=== PATIENT | male | born 1985 | race American Indian/Alaskan Native ===

== ENCOUNTER 2017-01-30 04:23 | Emergency (ER) | payer MEDICAID, OTHER ==
[2017-01-30 04:39] VITALS: BP 131/80
[2017-01-30] MEDS ORDERED: Albuterol/Ipratropium 3.0-0.5 MG/3 ML Neb Soln NEB ONE (04:40)
--- NOTE | 2017-01-30 04:43 | EDM.PDOC ---
{null, ED HPI GENERAL MEDICAL PROBLEM - General Chief Complaint: Respiratory Problem Stated Complaint: COUGHING UP FLEM Time Seen by Provider: 01/30/17 04:40 Source of Information: Reports: Patient History Limitations: Reports: No Limitations - History of Present Illness INITIAL COMMENTS - FREE TEXT/NARRATIVE: sick with cough few days using nebs not getting better. - Related Data Allergies Allergy/AdvReac Type Severity Reaction Status Date / Time lactose Allergy Nausea and Verified 01/30/17 04:43 Vomiting Home Meds: Home Meds . [No Known Home Meds] 01/30/17 [History] Past Medical History - Past Health History Medical/Surgical History: Denies Medical/Surgical History HEENT History: Reports: None Cardiovascular History: Reports: None Respiratory History: Reports: None Gastrointestinal History: Reports: None Genitourinary History: Reports: None Musculoskeletal History: Reports: Arthritis, Back Pain, Chronic, Other (See Below) Other Musculoskeletal History: degenerative disk Neurological History: Reports: None Psychiatric History: Reports: None Endocrine/Metabolic History: Reports: None Hematologic History: Reports: None Immunologic History: Reports: None Oncologic (Cancer) History: Reports: None Dermatologic History: Reports: None Social & Family History - Tobacco Use Smoking Status *Q: Former Smoker Years of Tobacco use: 15 Second Hand Smoke Exposure: Yes - Alcohol Use Days Per Week of Alcohol Use: 0 Number of Drinks Per Day: 5 Total Drinks Per Week: 0 - Recreational Drug Use Recreational Drug Use: No - Living Situation & Occupation Living situation: Reports: with Family Occupation: Employed ED ROS GENERAL - Review of Systems Review Of Systems: ROS reveals no pertinent complaints other than HPI. ED EXAM, GENERAL - Physical Exam Exam: See Below Exam Limited By: No Limitations General Appearance: Alert, WD/WN, No Apparent Distress, Other (episodic cough spasms) Ears: Hearing Grossly Normal Throat/Mouth: Normal Voice, No Airway Compromise Head: Atraumatic Neck: Non-Tender, Full Range of Motion Respiratory/Chest: No Respiratory Distress, No Accessory Muscle Use, Rhonchi, Wheezing. No: Decreased Breath Sounds, Retractions, Splinting Cardiovascular: Regular Rate, Rhythm GI/Abdominal: Soft, Non-Tender Neurological: Alert, Oriented, Normal Cognition, Normal Gait, No Motor/Sensory Deficits Psychiatric: Normal Affect, Normal Mood Skin Exam: Warm, Dry Lymphatic: No Adenopathy Course - Vital Signs Last Recorded V/S: Last Vital Signs Temp 35.5 C 01/30/17 04:35 Pulse 73 01/30/17 04:35 Resp 18 01/30/17 04:35 BP 131/80 01/30/17 04:35 Pulse Ox 96 01/30/17 04:35 - Orders/Labs/Meds Orders: Active Orders 24 hr Category Date Time Status RT Aerosol Therapy [RC] ASDIRECTED Care 01/30/17 04:40 Active Meds: Medications Discontinued Medications Generic Name Dose Route Start Last Admin Trade Name Dany PRN Reason Stop Dose Admin Albuterol/Ipratropium 3 ml 01/30/17 04:40 01/30/17 04:47 Duoneb 3.0-0.5 Mg/3 Ml NEB 01/30/17 04:41 3 ml ONETIME ONE Administration - Re-Assessments/Exams Free Text/Narrative Re-Assessment/Exam: 01/30/17 05:25 s/p duoneb=much better Departure - Departure Time of Disposition: 05:25 Disposition: Home, Self-Care 01 Condition: good Clinical Impression: Bronchospasm with bronchitis, acute - Discharge Information Instructions: Acute Bronchitis, [id number] Forms: ED Department Discharge Additional Instructions: 1) rest 2) use neb 3 times daily for cough and congestion 3) follow up at clinic or recheck as needed rx given: albuterol 2.5mg solution tid prn - My Orders Last 24 Hours: My Active Orders 01/30/17 04:40 RT Aerosol Therapy [RC] ASDIRECTED - Assessment/Plan Last 24 Hours: My Active Orders 01/30/17 04:40 RT Aerosol Therapy [RC] ASDIRECTED }
== END 2017-01-30 05:29 | disposition home or self-care (01) ==
LOC: DL.ED 04:23
DX: J20.9 Acute bronchitis, unspecified (principal); M19.90 Unspecified osteoarthritis, unspecified site; Z91.09 Other allergy status, other than to drugs and biological substances; Z87.891 Personal history of nicotine dependence
CPT/HCPCS: 94640; 99283

== ENCOUNTER 2017-02-06 00:30 | Emergency (ER) | payer OTHER ==
[2017-02-06 01:03] VITALS: BP 127/86
[2017-02-06] MEDS ORDERED: Acetaminophen/HYDROcodone 325-10 MG Tab PO ONE (01:33)
[2017-02-06] MEDS ORDERED: Ketorolac 30 MG/ML SDV IM ONE (01:33)
--- NOTE | 2017-02-06 01:40 | EDM.PDOC ---
ED HPI GENERAL MEDICAL PROBLEM - General Chief Complaint: Lower Extremity Injury/Pain Stated Complaint: BACK PAIN Time Seen by Provider: 02/06/17 01:35 Source of Information: Reports: Patient History Limitations: Reports: No Limitations - History of Present Illness INITIAL COMMENTS - FREE TEXT/NARRATIVE: h/o degenerative disk with sciatica, been doing lots of lifting and pushing cars. Lower Back Pain Score (Numeric/FACES): 9 - Related Data Allergies Allergy/AdvReac Type Severity Reaction Status Date / Time lactose Allergy Nausea and Verified 02/06/17 01:03 Vomiting Home Meds: Home Meds . [No Known Home Meds] 01/30/17 [History] Past Medical History - Past Health History Medical/Surgical History: Denies Medical/Surgical History HEENT History: Reports: None, Impaired Vision Cardiovascular History: Reports: None, Cardiomyopathy Respiratory History: Reports: None Gastrointestinal History: Reports: None Genitourinary History: Reports: None Musculoskeletal History: Reports: Arthritis, Back Pain, Chronic, Other (See Below) Other Musculoskeletal History: degenerative disk , bone spurs to back Neurological History: Reports: None, Migraines Psychiatric History: Reports: None Endocrine/Metabolic History: Reports: None Hematologic History: Reports: None Immunologic History: Reports: None Oncologic (Cancer) History: Reports: None Dermatologic History: Reports: None Social & Family History - Tobacco Use Smoking Status *Q: Current Every Day Smoker Years of Tobacco use: 5 Packs/Tins Daily: 0.5 Second Hand Smoke Exposure: No - Alcohol Use Days Per Week of Alcohol Use: 0 Number of Drinks Per Day: 5 Total Drinks Per Week: 0 - Recreational Drug Use Recreational Drug Use: Yes Drug Use in Last 12 Months: Yes Recreational Drug Type: Reports: Marijuana/Hashish Recreational Drug Use Frequency: Weekly - Living Situation & Occupation Living situation: Reports: with Family Occupation: Employed Review of Systems - Review of Systems Review Of Systems: ROS reveals no pertinent complaints other than HPI. Trauma Exam - Physical Exam Exam: See Below Exam Limited By: No Limitations General Appearance: Reports: Alert, WD/WN, Mild Distress, Other (pain) Head: Reports: Atraumatic Ears: Reports: Hearing Grossly Normal Throat/Mouth: Reports: Normal Voice, No Airway Compromise Neck: Reports: Non-Tender, Full Range of Motion Respiratory Exam: Reports: No Respiratory Distress Cardiovascular: Reports: Regular Rate, Rhythm GI/Abdominal: Reports: Soft, Non-Tender Back: Reports: Muscle Spasm, Paraspinal Tenderness, Other (bilateral sciatica, gait limited to pain) Neurologic: Reports: No Motor/Sensory Deficits, Alert, Normal Mood/Affect, Oriented x 3 Skin: Reports: Normal Color, Warm/Dry Course - Vital Signs Last Recorded V/S: Last Vital Signs Temp 36.3 C 02/06/17 00:57 Pulse 89 02/06/17 00:57 Resp 16 02/06/17 00:57 BP 127/86 02/06/17 00:57 Pulse Ox 98 02/06/17 00:57 - Orders/Labs/Meds Meds: Medications Discontinued Medications Generic Name Dose Route Start Last Admin Trade Name Freq PRN Reason Stop Dose Admin Hydrocodone Bitart/Acetaminophen 1 tab 02/06/17 01:33 [place] 325-10 Mg PO 02/06/17 01:34 ONETIME ONE Ketorolac Tromethamine 30 mg 02/06/17 01:33 Toradol IM 02/06/17 01:34 ONETIME ONE Departure - Departure Time of Disposition: 01:36 Disposition: Home, Self-Care 01 Condition: good Clinical Impression: Lumbar radicular pain - Discharge Information Instructions: Back Pain, Adult, [id number] Forms: ED Department Discharge Additional Instructions: 1) avoid bending lifting straining next 4 to 5 days 2) try ice or heat to sore areas 3) follow up at clinic or recheck as needed rx given; flexeril 10mg tid prn spasm x 12 vicodin 5/325mg bid prn pain x 12
== END 2017-02-06 02:04 | disposition home or self-care (01) ==
LOC: DL.ED 00:30
DX: M54.16 Radiculopathy, lumbar region (principal); F17.210 Nicotine dependence, cigarettes, uncomplicated; Z91.011 Allergy to milk products
CPT/HCPCS: 96372; 99282; A9270; J1885; 99283

== ENCOUNTER 2017-03-21 20:26 | Emergency (ER) | payer MEDICAID, OTHER ==
[2017-03-21 20:59] VITALS: BP 97/85
[2017-03-21] MEDS ORDERED: HYDROmorphone 1 MG/ML Syringe IM ONE (21:17)
[2017-03-21] MEDS ORDERED: Promethazine 25 MG/ML SDV IM ONE (21:17)
--- NOTE | 2017-03-21 21:23 | EDM.PDOC ---
ED HPI GENERAL MEDICAL PROBLEM - General Chief Complaint: Back Pain or Injury Stated Complaint: BACK PAIN, [id number] Time Seen by Provider: 03/21/17 21:15 Source of Information: Reports: Patient History Limitations: Reports: No Limitations - History of Present Illness INITIAL COMMENTS - FREE TEXT/NARRATIVE: MRI today reveal multi level herniation & degeneration. has appt' Tuesday @ [facility] for meds Treatments MECHANIC RECOVERY: Reports: Other (see below) Other Treatments MECHANIC RECOVERY: none Lower Back Pain Score (Numeric/FACES): 9 - Related Data Allergies Allergy/AdvReac Type Severity Reaction Status Date / Time lactose AdvReac Nausea and Verified 03/21/17 20:59 Vomiting Home Meds: Home Meds Celecoxib 400 mg PO BID 03/21/17 [History] Past Medical History - Past Health History Medical/Surgical History: Denies Medical/Surgical History HEENT History: Reports: Impaired Vision Other HEENT History: wears contacts Cardiovascular History: Reports: Cardiomyopathy Respiratory History: Reports: None Gastrointestinal History: Reports: None Genitourinary History: Reports: None Musculoskeletal History: Reports: Arthritis, Back Pain, Chronic, Other (See Below) Other Musculoskeletal History: degenerative disk , bone spurs to back Neurological History: Reports: Migraines Psychiatric History: Reports: None Endocrine/Metabolic History: Reports: None Hematologic History: Reports: None Immunologic History: Reports: None Oncologic (Cancer) History: Reports: None Dermatologic History: Reports: None - Infectious Disease History Infectious Disease History: Reports: Chicken Pox Social & Family History - Family History Family Medical History: Noncontributory - Tobacco Use Smoking Status *Q: Current Every Day Smoker Years of Tobacco use: 5 Packs/Tins Daily: 0.5 Second Hand Smoke Exposure: No - Caffeine Use Caffeine Use: Reports: Coffee - Alcohol Use Days Per Week of Alcohol Use: 0 Number of Drinks Per Day: 5 Total Drinks Per Week: 0 - Recreational Drug Use Recreational Drug Use: Yes Drug Use in Last 12 Months: Yes Recreational Drug Type: Reports: Marijuana/Hashish Recreational Drug Use Frequency: Socially - Living Situation & Occupation Living situation: Reports: with Family Occupation: Employed ED ROS GENERAL - Review of Systems Review Of Systems: ROS reveals no pertinent complaints other than HPI. ED EXAM,LOWER BACK PAIN/INJURY - Physical Exam Exam: See Below Exam Limited By: No Limitations General Appearance: Alert, WD/WN, Mild Distress, Other (apin) Ears: Hearing Grossly Normal Throat/Mouth: Normal Voice, No Airway Compromise Head: Atraumatic Neck: Non-Tender, Full Range of Motion Respiratory/Chest: No Respiratory Distress Cardiovascular: Regular Rate, Rhythm GI/Abdominal: Soft, Non-Tender Back Exam: Muscle Spasm, Paraspinal Tenderness, Other (bilateral L1-2-3-4-5 & S1 , gait limited to pain) Neurological: Alert, Normal Mood/Affect, No Motor/Sensory Deficits, Oriented x 3 Psychiatric: Tearful Skin Exam: Warm, Dry Lymphatic: No Adenopathy Course - Vital Signs Last Recorded V/S: Last Vital Signs Temp 35.3 C 03/21/17 20:58 Pulse 100 03/21/17 20:58 Resp 20 03/21/17 20:58 BP 97/85 03/21/17 20:58 Pulse Ox 98 03/21/17 20:58 - Orders/Labs/Meds Meds: Medications Discontinued Medications Generic Name Dose Route Start Last Admin Trade Name Freq PRN Reason Stop Dose Admin Hydromorphone HCl 1 mg 03/21/17 21:17 Dilaudid IM 03/21/17 21:18 ONETIME ONE Promethazine HCl 25 mg 03/21/17 21:17 Phenergan IM 03/21/17 21:18 ONETIME ONE Departure - Departure Time of Disposition: 21:21 Disposition: Home, Self-Care 01 Condition: Good Clinical Impression: Lumbar radicular syndrome - Discharge Information Instructions: Back Pain, Adult, [id number] Forms: ED Department Discharge Additional Instructions: 1) avoid bending lifting straining 2) try heat to area 3) follow up at clinic rx given: flexeril 10mg tid prn x 12 vicodin 5/325m tid prn x 12
[2017-03-21] MEDS ORDERED: Acetaminophen/HYDROcodone 325-10 MG Tab PO ONE (21:37)
[2017-03-21] MEDS ORDERED: Acetaminophen/HYDROcodone 325-10 MG Tab ONE (21:37)
== END 2017-03-21 21:48 | disposition home or self-care (01) ==
LOC: DL.ED 20:26
DX: M54.16 Radiculopathy, lumbar region (principal); F17.210 Nicotine dependence, cigarettes, uncomplicated; Z91.011 Allergy to milk products
CPT/HCPCS: 96372; 99282; J1170; J2550; A9270-GY

== ENCOUNTER 2017-04-16 17:03 | Emergency (ER) | payer MEDICAID, OTHER ==
[2017-04-16] MEDS ORDERED: Ondansetron 4 MG Tab.DIS PO ONE (17:26)
[2017-04-16 17:36] VITALS: BP 134/100
[2017-04-16] MEDS ORDERED: Penicillin G Benzathine/Procaine 600-600 1.2 Millunits/2 ML Syringe IM ONE ×2 (17:41→17:44)
[2017-04-16] MEDS ORDERED: predniSONE 20 MG Tab PO ONE (17:41)
--- NOTE | 2017-04-16 17:49 | EDM.PDOC ---
Scribed by Nicole Carrera 04/16/17 2068 for Juan Oconnor MD ED HPI GENERAL MEDICAL PROBLEM - General Chief Complaint: ENT Problem Stated Complaint: THROWING UP, GOGO, [id number] Time Seen by Provider: 04/16/17 17:20 Source of Information: Reports: Patient, RN, RN Notes Reviewed History Limitations: Reports: No Limitations - History of Present Illness INITIAL COMMENTS - FREE TEXT/NARRATIVE: Complained of onset of sore throat yesterday with fever, chills, frontal headache, nausea and vomiting. He thinks he was exposed to strep. Location: Reports: Other (throat) Quality: Reports: Ache Severity: Severe Improves with: Reports: None Worsens with: Reports: None Associated Symptoms: Reports: No Other Symptoms Generalized Pain Score (Numeric/FACES): 6 - Related Data Allergies Allergy/AdvReac Type Severity Reaction Status Date / Time lactose AdvReac Nausea and Verified 04/16/17 17:28 Vomiting Home Meds: Home Meds . [No Known Home Meds] 04/16/17 [History] Past Medical History - Past Health History Medical/Surgical History: Denies Medical/Surgical History HEENT History: Reports: Impaired Vision Other HEENT History: wears contacts Cardiovascular History: Reports: Cardiomyopathy Respiratory History: Reports: None Gastrointestinal History: Reports: None Genitourinary History: Reports: None Musculoskeletal History: Reports: Arthritis, Back Pain, Chronic, Other (See Below) Other Musculoskeletal History: degenerative disk , bone spurs to back Neurological History: Reports: Migraines Psychiatric History: Reports: None Endocrine/Metabolic History: Reports: None Hematologic History: Reports: None Immunologic History: Reports: None Oncologic (Cancer) History: Reports: None Dermatologic History: Reports: None - Infectious Disease History Infectious Disease History: Reports: Chicken Pox Social & Family History - Family History Family Medical History: Noncontributory - Tobacco Use Smoking Status *Q: Current Every Day Smoker Years of Tobacco use: 5 Packs/Tins Daily: 0.5 Second Hand Smoke Exposure: No - Caffeine Use Caffeine Use: Reports: Coffee - Alcohol Use Days Per Week of Alcohol Use: 0 Number of Drinks Per Day: 5 Total Drinks Per Week: 0 - Recreational Drug Use Recreational Drug Use: Yes Drug Use in Last 12 Months: Yes Recreational Drug Type: Reports: Marijuana/Hashish Recreational Drug Use Frequency: Socially - Living Situation & Occupation Living situation: Reports: with Family Occupation: Employed ED ROS GENERAL - Review of Systems Review Of Systems: ROS reveals no pertinent complaints other than HPI. ED EXAM, GENERAL - Physical Exam Exam: See Below Exam Limited By: No Limitations General Appearance: Alert, WD/WN, No Apparent Distress Eye Exam: Bilateral Eye: Normal Inspection Ears: Normal External Exam, Normal Canal, Hearing Grossly Normal, Normal TMs Nose: Normal Inspection, Normal Mucosa, No Blood Throat/Mouth: Other (pharyngeal erythema, tonsillar erythema with exudates.) Head: Atraumatic, Normocephalic Neck: Full Range of Motion, Other (No nuchal rigidity. Shoddy upper/anterior LAD. ) Respiratory/Chest: No Respiratory Distress, Lungs Clear, Normal Breath Sounds, No Accessory Muscle Use, Chest Non-Tender Cardiovascular: Normal Peripheral Pulses, Regular Rate, Rhythm, No Edema, No Gallop, No JVD, No Murmur, No Rub GI/Abdominal: Normal Bowel Sounds, Soft, Non-Tender, No Organomegaly, No Distention, No Abnormal Bruit, No Mass (Male) Exam: Deferred Rectal (Males) Exam: Deferred Back Exam: Normal Inspection, Full Range of Motion, NT Extremities: Normal Inspection, Normal Range of Motion, Non-Tender, Normal Capillary Refill, No Pedal Edema Psychiatric: Normal Affect, Normal Mood Skin Exam: Warm, Dry, Intact, Normal Color, No Rash Course - Vital Signs Last Recorded V/S: Last Vital Signs Temp 36.0 C 04/16/17 17:29 Pulse 94 04/16/17 17:29 Resp 18 04/16/17 17:29 BP 134/100 H 04/16/17 17:29 Pulse Ox 98 04/16/17 17:29 - Orders/Labs/Meds Orders: Active Orders 24 hr Category Date Time Status Pen G Antwon/Pen G Procaine [Bicillin C-R 600/600] Med 04/16/17 17:44 Once 2.4 millunits IM ONETIME ONE Meds: Medications Discontinued Medications Generic Name Dose Route Start Last Admin Trade Name Freq PRN Reason Stop Dose Admin Ondansetron HCl 4 mg 04/16/17 17:26 04/16/17 17:39 Zofran Odt PO 04/16/17 17:27 4 mg ONETIME ONE Administration Penicillin G Procaine/Benzathine 1.2 millunits 04/16/17 17:41 Bicillin C-R 600/600 IM 04/16/17 17:42 ONETIME ONE Prednisone 60 mg 04/16/17 17:41 Prednisone PO 04/16/17 17:42 ONETIME ONE Rapid strep: Positive. Departure - Departure Time of Disposition: 17:45 Disposition: Home, Self-Care 01 Condition: Good Clinical Impression: Strep pharyngitis - Discharge Information Instructions: Strep Throat, [id number] Forms: ED Department Discharge Additional Instructions: RX: Zofran 4mg. RX: Amoxicillin 500mg. Drink plenty of fluids. Salt water gargle. Follow up in clinic if not better in 3 days. I have read and agree with the documentation that has been completed regarding this visit. By signing this record, I attest that the documentation was completed in my physical presence and is an accurate record of the encounter.
== END 2017-04-16 18:06 | disposition home or self-care (01) ==
LOC: DL.ED 17:03
DX: J02.0 Streptococcal pharyngitis (principal); H54.7 Unspecified visual loss; M19.90 Unspecified osteoarthritis, unspecified site; F17.210 Nicotine dependence, cigarettes, uncomplicated; Z91.011 Allergy to milk products
CPT/HCPCS: 87430; 96372; 99283; A9270; J0558

== ENCOUNTER 2017-06-14 23:25 | Emergency (ER) | payer MEDICAID, OTHER ==
[2017-06-14 23:44] VITALS: BP 140/97
[2017-06-15] MEDS ORDERED: Acetaminophen/HYDROcodone 325-10 MG Tab PO ONE (00:20)
--- NOTE | 2017-06-15 00:25 | EDM.PDOC ---
ED HPI GENERAL MEDICAL PROBLEM - General Chief Complaint: Back Pain or Injury Stated Complaint: BACK PAIN AND SICK [id number] Time Seen by Provider: 06/14/17 23:50 Source of Information: Reports: Patient History Limitations: Reports: No Limitations - History of Present Illness INITIAL COMMENTS - FREE TEXT/NARRATIVE: ED ambulatory with c/o low back pain. Pain similar to previous exacerbations. Hx chronic back gardner. Notes hx spinal stenosis. Reports pain worse tonight " after baby sitting. Usually only takes Ibuprofen , but not helping. Lower Back Pain Score (Numeric/FACES): 9 - Related Data Allergies Allergy/AdvReac Type Severity Reaction Status Date / Time lactose AdvReac Nausea and Verified 06/14/17 23:40 Vomiting Home Meds: Home Meds . [No Known Home Meds] 04/16/17 [History] Past Medical History - Past Health History Medical/Surgical History: Denies Medical/Surgical History HEENT History: Reports: Impaired Vision Other HEENT History: wears contacts Cardiovascular History: Reports: Cardiomyopathy Respiratory History: Reports: None Gastrointestinal History: Reports: None Genitourinary History: Reports: None Musculoskeletal History: Reports: Arthritis, Back Pain, Chronic, Other (See Below) Other Musculoskeletal History: degenerative disk , bone spurs to back Neurological History: Reports: Migraines Psychiatric History: Reports: None Endocrine/Metabolic History: Reports: None Hematologic History: Reports: None Immunologic History: Reports: None Oncologic (Cancer) History: Reports: None Dermatologic History: Reports: None - Infectious Disease History Infectious Disease History: Reports: Chicken Pox Social & Family History - Family History Family Medical History: Noncontributory - Tobacco Use Smoking Status *Q: Light Tobacco Smoker Years of Tobacco use: 10 Packs/Tins Daily: 0.5 Second Hand Smoke Exposure: No - Caffeine Use Caffeine Use: Reports: Coffee - Alcohol Use Days Per Week of Alcohol Use: 0 Number of Drinks Per Day: 5 Total Drinks Per Week: 0 - Recreational Drug Use Recreational Drug Use: No Drug Use in Last 12 Months: Yes Recreational Drug Type: Reports: Marijuana/Hashish Recreational Drug Use Frequency: Socially - Living Situation & Occupation Living situation: Reports: with Family Occupation: Employed ED ROS GENERAL - Review of Systems Review Of Systems: See Below Constitutional: Reports: No Symptoms HEENT: Reports: No Symptoms Respiratory: Reports: No Symptoms Cardiovascular: Reports: No Symptoms GI/Abdominal: Reports: Abdominal Pain, Diarrhea (x1), Decreased Appetite : Reports: No Symptoms Musculoskeletal: Reports: Back Pain Skin: Reports: No Symptoms Neurological: Reports: No Symptoms, Difficulty Walking ED EXAM,LOWER BACK PAIN/INJURY - Physical Exam Exam: See Below Exam Limited By: No Limitations General Appearance: Alert, 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 No: Vertebral Tenderness Extremities: Normal Inspection Neurological: Alert, Normal Mood/Affect, Normal Gait, No Motor/Sensory Deficits , Oriented x 3 Psychiatric: Normal Affect Skin Exam: Warm, Dry, Intact Course - Vital Signs Last Recorded V/S: Last Vital Signs Temp 97.4 F 06/14/17 23:41 Pulse 106 H 06/14/17 23:41 Resp 18 06/14/17 23:41 BP 140/97 H 06/14/17 23:41 Pulse Ox 98 06/14/17 23:41 - Orders/Labs/Meds Meds: Medications Discontinued Medications Generic Name Dose Route Start Last Admin Trade Name Dany PRN Reason Stop Dose Admin Hydrocodone Bitart/Acetaminophen 1 tab 06/15/17 00:20 06/15/17 00:25 [place] 325-10 Mg PO 06/15/17 00:21 1 tab ONETIME ONE Administration Orphenadrine Citrate 60 mg 06/15/17 00:30 Norflex IM Q12H GENNY Orphenadrine Citrate 60 mg 06/15/17 00:22 06/15/17 00:26 Norflex IM 06/15/17 00:23 60 mg ONETIME ONE Administration Departure - Departure Time of Disposition: 00:56 Disposition: Home, Self-Care 01 Condition: Good Clinical Impression: Back pain Qualifiers: Back pain location: low back pain Chronicity: unspecified Back pain laterality : midline Sciatica presence: without sciatica Qualified Code(s): M54.5 - Low back pain Pharyngitis Qualifiers: Pharyngitis/tonsillitis etiology: unspecified etiology Qualified Code(s): J02.9 - Acute pharyngitis, unspecified URI (upper respiratory infection) Qualifiers: URI type: unspecified URI Qualified Code(s): J06.9 - Acute upper respiratory infection, unspecified - Discharge Information Instructions: Diarrhea, Adult, Chronic Back Pain Referrals: PCP,None [Primary Care Provider] - Forms: ED Department Discharge Additional Instructions: light bland diet alternate ice and heat to low back follow up with primary care regarding chronic low back pain alternate tylenol 650mg and ibuprofen 800mg every 4 hours as needed for chronic back pain
== END 2017-06-15 01:06 | disposition home or self-care (01) ==
LOC: DL.ED 23:25
DX: M54.5 Low back pain (principal); J02.9 Acute pharyngitis, unspecified; Z91.011 Allergy to milk products; F17.210 Nicotine dependence, cigarettes, uncomplicated
CPT/HCPCS: 87081; 87430; 96372; 99283; A9270; J2360

== ENCOUNTER 2017-09-29 21:39 | Emergency (ER) | payer MEDICAID, OTHER ==
[2017-09-29 22:13] VITALS: BP 147/88
[2017-09-30 00:54] LABS: ANION GAP 9.5; CHLORIDE,CL 103 mmol/L (101-111); SODIUM,NA 139 mmol/L (135-145)
--- NOTE | 2017-09-30 01:02 | EDM.PDOC ---
ED HPI GENERAL MEDICAL PROBLEM - General Chief Complaint: Chest Pain Stated Complaint: BACK,HEAD PROBLEMS,SHARP PAINS IN CHEST, [id number] Time Seen by Provider: 09/30/17 00:06 Source of Information: Reports: Patient History Limitations: Reports: No Limitations - History of Present Illness INITIAL COMMENTS - FREE TEXT/NARRATIVE: patient comes emergency department today with generalized malaise and fatigue as well as some right-sided chest pain. He relates over the past couple hours he has had intermittent shooting pains on his chest wall on the right lower aspect of his anterior chest. They come and go indeterminant of position or movement. They feel like a muscle spasm she relates he does not have any chest pain or shortness of breath at this time. He denies any cough or congestion. He does complain of a subjective fever over the past couple of days although he has not checked his fever. He denies any chills. He has had one episode of vomiting and is somewhat nauseated although he is not nauseated at this time. He has had a couple bouts of diarrhea over the past couple of days although he has not had any today. He denies any hematuria dysuria or urinary frequency. He denies any abdominal pain. He denies any flank pain. He does complain of just generalized malaise and fatigue. There are multiple other family members in his house with similar symptomology. - Related Data Allergies Allergy/AdvReac Type Severity Reaction Status Date / Time lactose AdvReac Nausea and Verified 06/14/17 23:40 Vomiting Home Meds: Home Meds . [No Known Home Meds] 04/16/17 [History] Past Medical History - Past Health History Medical/Surgical History: Denies Medical/Surgical History HEENT History: Reports: Impaired Vision Other HEENT History: wears contacts Cardiovascular History: Reports: Cardiomyopathy Respiratory History: Reports: None Gastrointestinal History: Reports: None Genitourinary History: Reports: None Musculoskeletal History: Reports: Arthritis, Back Pain, Chronic, Other (See Below) Other Musculoskeletal History: degenerative disk , bone spurs to back Neurological History: Reports: Migraines Psychiatric History: Reports: None Endocrine/Metabolic History: Reports: None Hematologic History: Reports: None Immunologic History: Reports: None Oncologic (Cancer) History: Reports: None Dermatologic History: Reports: None - Infectious Disease History Infectious Disease History: Reports: Chicken Pox Social & Family History - Family History Family Medical History: Noncontributory - Tobacco Use Smoking Status *Q: Current Every Day Smoker Years of Tobacco use: 5 Packs/Tins Daily: 0.5 Second Hand Smoke Exposure: No - Caffeine Use Caffeine Use: Reports: Coffee - Alcohol Use Days Per Week of Alcohol Use: 0 Number of Drinks Per Day: 5 Total Drinks Per Week: 0 - Recreational Drug Use Recreational Drug Use: No Drug Use in Last 12 Months: Yes Recreational Drug Type: Reports: Marijuana/Hashish Recreational Drug Use Frequency: Socially - Living Situation & Occupation Living situation: Reports: with Family Occupation: Employed ED ROS GENERAL - Review of Systems Review Of Systems: ROS reveals no pertinent complaints other than HPI. ED EXAM, GENERAL - Physical Exam Exam: See Below Exam Limited By: No Limitations General Appearance: Alert, WD/WN, No Apparent Distress Eye Exam: Bilateral Eye: Normal Inspection Ears: Normal External Exam, Normal Canal, Normal TMs Nose: Normal Inspection, Normal Mucosa, No Blood Throat/Mouth: Normal Inspection, Normal Lips, Normal Teeth. No: Normal Oropharynx (mild erythema bilateral tonsils. Without swelling induration or exudate.) Head: Atraumatic, Normocephalic Neck: Normal Inspection, Supple, Non-Tender. No: Lymphadenopathy (L), Lymphadenopathy (R) Respiratory/Chest: No Respiratory Distress, Lungs Clear, Normal Breath Sounds, No Accessory Muscle Use, Chest Non-Tender Cardiovascular: Normal Peripheral Pulses, Regular Rate, Rhythm, No Gallop, No JVD, No Murmur, No Rub Peripheral Pulses: 2+: Radial (L), Radial (R), Posterior Tibial (L), Posterior Tibial (R), Dorsalis Pedis (L) GI/Abdominal: Normal Bowel Sounds, Soft, Non-Tender, No Organomegaly, No Distention, No Abnormal Bruit, No Mass (Male) Exam: Deferred Rectal (Males) Exam: Deferred Back Exam: Normal Inspection, Full Range of Motion. No: CVA Tenderness (L), CVA Tenderness (R), Muscle Spasm, Paraspinal Tenderness, Vertebral Tenderness Extremities: Normal Inspection, Normal Range of Motion, Non-Tender, No Pedal Edema, Normal Capillary Refill Neurological: Alert, Oriented Psychiatric: Normal Affect, Normal Mood Skin Exam: Warm, Dry, Intact, Normal Color, No Rash Course - Vital Signs Last Recorded V/S: Last Vital Signs Temp 36.3 C 09/29/17 22:10 Pulse 90 09/29/17 22:10 Resp 20 09/29/17 22:10 BP 147/88 H 09/29/17 22:10 Pulse Ox 99 09/29/17 22:10 - Orders/Labs/Meds Orders: Active Orders 24 hr Category Date Time Status EKG Documentation Completion [RC] STAT Care 09/29/17 22:17 Active CULTURE STREP A CONFIRMATION [] Stat Lab 09/30/17 00:14 Results STREP SCRN A RAPID W CULT CONF [] Stat Lab 09/30/17 00:14 Results Labs: Laboratory Tests 09/30/17 09/30/17 09/30/17 Range/Units 00:29 00:29 00:29 WBC 10.0 (5.0-10.0) 10^3/uL RBC 4.49 L (4.6-6.2) 10^6/uL Hgb 13.5 L D (14.0-18.0) g/dL Hct 39.1 L (40.0-54.0) % MCV 87.1 D (80-100) fL MCH 30.1 (27.0-34.0) pg MCHC 34.5 (33.0-35.0) g/dL Plt Count 213 (150-450) 10^3/uL Neut % (Auto) 69.9 (42.2-75.2) % Lymph % (Auto) 19.7 L (20.5-50.1) % [place] % (Auto) 8.8 H (2-8) % Eos % (Auto) 1.4 (1.0-3.0) % Baso % (Auto) 0.2 (0.0-1.0) % Sodium 139 (135-145) mmol/L Potassium 3.5 L (3.6-5.0) mmol/L Chloride 103 (101-111) mmol/L Carbon Dioxide 30.0 (21.0-31.0) mmol/L Anion Gap 9.5 BUN 15 (7-18) mg/dL Creatinine 0.9 (0.6-1.3) mg/dL Est Cr Clr Drug Dosing 154.72 mL/min Estimated GFR (MDRD) > 60 Glucose 99 (74-105) mg/dL Calcium 8.3 L (8.4-10.2) mg/dl Troponin I < 0.02 (0.00-0.02) ng/ml Monoscreen Negative Microbiology 09/30/17 00:14 Throat Group A Streptococcus Rapid Screen - Final NEGATIVE STREP A SCREEN 09/29/17 22:19 Nasal, Left Influenza Type A Antigen Screen - Final NEGATIVE INFLUENZA A VIRUS AG 09/29/17 22:19 Nasal, Left Influenza Type B Antigen Screen - Final NEGATIVE INFLUENZA B VIRUS AG Departure - Departure Time of Disposition: Disposition: Home, Self-Care 01 Clinical Impression: Chest pain, musculoskeletal, Gastroenteritis - Discharge Information Instructions: Viral Gastroenteritis, Adult, [id number], Nonspecific Chest Pain, [id number] Referrals: PCP,Unobtain [Primary Care Provider] - Forms: ED Department Discharge Additional Instructions: Tylenol and/or ibuprofen as if her pain fever discomfort. Push oral fluids over the next couple of days especially electrolyte-containing material such as Gatorade and/or Powerade. Rest as much as possible. Return emergency department if new or worsening symptoms. Recheck primary care provider the next 4-6 days if not improving sooner if worse. - My Orders Last 24 Hours: My Active Orders 09/29/17 22:17 EKG Documentation Completion [RC] STAT 09/30/17 00:14 CULTURE STREP A CONFIRMATION [RM] Stat STREP SCRN A RAPID W CULT CONF [RM] Stat - Assessment/Plan Last 24 Hours: My Active Orders 09/29/17 22:17 EKG Documentation Completion [RC] STAT 09/30/17 00:14 CULTURE STREP A CONFIRMATION [RM] Stat STREP SCRN A RAPID W CULT CONF [RM] Stat Assessment:: CP muskuloskeltal negative workup. Viral gastroenteritis. Plan: Tylenol and/or ibuprofen as if her pain fever discomfort. Push oral fluids over the next couple of days especially electrolyte-containing material such as Gatorade and/or Powerade. Rest as much as possible. Return emergency department if new or worsening symptoms. Recheck primary care provider the next 4-6 days if not improving sooner if worse.
--- NOTE | 2017-10-05 09:44 | EKG ---
09/29/2017- ABDULKADIR MITCHELL - FINDINGS: EKG, per my reading, shows sinus rhythm at the rate of 80s. [facility] /[id number]
== END 2017-09-30 01:24 | disposition home or self-care (01) ==
LOC: DL.ED 21:39
DX: R07.89 Other chest pain (principal); A08.4 Viral intestinal infection, unspecified; F17.210 Nicotine dependence, cigarettes, uncomplicated; Z88.8 Allergy status to other drugs, medicaments and biological substances
CPT/HCPCS: 36415; 80048; 84484; 85025; 86308; 87081; 87430; 87804; 93005; 99284

== ENCOUNTER 2017-12-04 23:27 | Emergency (ER) | payer MEDICAID, OTHER ==
[2017-12-04 23:46] VITALS: BP 128/87
[2017-12-04] MEDS ORDERED: Ketorolac 30 MG/ML SDV IVPUSH ONE (23:57)
[2017-12-04] MEDS ORDERED: Clindamycin Phosphate 900 MG in Sodium Chloride 0.9% 100 ML IV ONE (23:57)
[2017-12-04] MEDS ORDERED: Sodium Chloride 0.9% 1,000 ML IV ONE (23:57)
--- NOTE | 2017-12-05 00:08 | EDM.PDOC ---
ED HPI GENERAL MEDICAL PROBLEM - General Chief Complaint: Wound Recheck Stated Complaint: INFECTION IN LEG [id number] Time Seen by Provider: 12/05/17 00:06 Source of Information: Reports: Patient History Limitations: Reports: No Limitations - History of Present Illness INITIAL COMMENTS - FREE TEXT/NARRATIVE: states injured left vidales at work when a board fell onto it but unable to get to hospital till now. 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 [No Known Home Meds] 04/16/17 [History] Past Medical History - Past Health History Medical/Surgical History: Denies Medical/Surgical History HEENT History: Reports: Impaired Vision Other HEENT History: wears contacts Cardiovascular History: Reports: Cardiomyopathy Respiratory History: Reports: None Gastrointestinal History: Reports: None Genitourinary History: Reports: None Musculoskeletal History: Reports: Arthritis, Back Pain, Chronic, Other (See Below) Other Musculoskeletal History: degenerative disk , bone spurs to back Neurological History: Reports: Migraines Psychiatric History: Reports: None Endocrine/Metabolic History: Reports: None Hematologic History: Reports: None Immunologic History: Reports: None Oncologic (Cancer) History: Reports: None Dermatologic History: Reports: None - Infectious Disease History Infectious Disease History: Reports: Chicken Pox Social & Family History - Family History Family Medical History: Noncontributory - Tobacco Use Smoking Status *Q: Current Every Day Smoker Years of Tobacco use: 5 Packs/Tins Daily: 10 Second Hand Smoke Exposure: No - Caffeine Use Caffeine Use: Reports: Coffee, Energy Drinks, Soda, Tea - Alcohol Use Days Per Week of Alcohol Use: 0 Number of Drinks Per Day: 5 Total Drinks Per Week: 0 - Recreational Drug Use Recreational Drug Use: No Drug Use in Last 12 Months: Yes Recreational Drug Type: Reports: Marijuana/Hashish Recreational Drug Use Frequency: Socially - Living Situation & Occupation Living situation: Reports: with Family Occupation: Employed ED ROS GENERAL - Review of Systems Review Of Systems: ROS reveals no pertinent complaints other than HPI. ED EXAM, GENERAL - Physical Exam Exam: See Below Exam Limited By: No Limitations General Appearance: Alert, WD/WN, Mild Distress, Other (pain) Ears: Hearing Grossly Normal Throat/Mouth: Normal Voice, No Airway Compromise Head: Atraumatic Neck: Non-Tender, Full Range of Motion Respiratory/Chest: No Respiratory Distress Cardiovascular: Regular Rate, Rhythm GI/Abdominal: Soft, Non-Tender Extremities: Leg Pain, Other (left vidales open wound mild drainage, no lymphangitis, mild local swelling, minimal erythema, gait limited to pain) Neurological: Alert, Oriented, Normal Cognition, No Motor/Sensory Deficits Psychiatric: Tearful Skin Exam: Warm, Dry, Normal Color Lymphatic: No Adenopathy Course - Vital Signs Last Recorded V/S: Last Vital Signs Temp 37.1 C 12/04/17 23:36 Pulse 87 12/04/17 23:36 Resp 18 12/04/17 23:36 BP 128/87 12/04/17 23:36 Pulse Ox 100 12/04/17 23:36 - Orders/Labs/Meds Orders: Active Orders 24 hr Category Date Time Status CULTURE BLOOD [BC] Stat Lab 12/04/17 23:58 Received CULTURE WOUND [RM] Stat Lab 12/04/17 23:58 Ordered Labs: Laboratory Tests 12/05/17 12/05/17 12/05/17 Range/Units 00:05 00:05 00:05 WBC 9.0 (5.0-10.0) 10^3/uL RBC 4.80 (4.6-6.2) 10^6/uL Hgb 15.0 D (14.0-18.0) g/dL Hct 41.7 (40.0-54.0) % MCV 86.9 (80-100) fL MCH 31.3 (27.0-34.0) pg MCHC 36.0 H (33.0-35.0) g/dL Plt Count 282 (150-450) 10^3/uL Neut % (Auto) 54.7 (42.2-75.2) % Lymph % (Auto) 32.0 (20.5-50.1) % [place] % (Auto) 8.8 H (2-8) % Eos % (Auto) 4.2 H (1.0-3.0) % Baso % (Auto) 0.3 (0.0-1.0) % Sodium 138 (135-145) mmol/L Potassium 3.8 (3.6-5.0) mmol/L Chloride 106 (101-111) mmol/L Carbon Dioxide 25.0 (21.0-31.0) mmol/L Anion Gap 10.8 BUN 17 (7-18) mg/dL Creatinine 1.0 (0.6-1.3) mg/dL Est Cr Clr Drug Dosing 137.95 mL/min Estimated GFR (MDRD) > 60 BUN/Creatinine Ratio 17.00 Glucose 122 H (74-105) mg/dL Lactic Acid 1.3 (0.5-2.2) mmol/L Calcium 8.8 (8.4-10.2) mg/dl Total Bilirubin 0.3 (0.2-1.0) mg/dL AST 27 (10-42) IU/L ALT 32 (10-60) IU/L Alkaline Phosphatase 63 (42-121) IU/L Total Protein 7.5 (6.7-8.2) g/dl Albumin 4.1 (3.2-5.5) g/dl Globulin 3.4 Albumin/Globulin Ratio 1.21 Meds: Medications Discontinued Medications Generic Name Dose Route Start Last Admin Trade Name Freq PRN Reason Stop Dose Admin Clindamycin Phosphate 900 mg/ 106 mls @ 200 mls/hr 12/04/17 23:57 12/05/17 00 :18 Sodium Chloride IV 12/05/17 00:28 200 mls/hr ONETIME ONE Administration Sodium Chloride 1,000 mls @ 999 mls/hr 12/04/17 23:57 12/05/17 00:18 Normal Saline IV 12/05/17 00:57 999 mls/hr .BOLUS ONE Administration Ketorolac Tromethamine 15 mg 12/04/17 23:57 12/05/17 00:16 Toradol IVPUSH 12/04/17 23:58 15 mg ONETIME ONE Administration - Re-Assessments/Exams Free Text/Narrative Re-Assessment/Exam: 12/05/17 00:44 results discussed with pt who is feeling better presently. Departure - Departure Time of Disposition: 02:06 Disposition: Home, Self-Care 01 Condition: Good Clinical Impression: Wound infection, posttraumatic - Discharge Information Instructions: Wound Infection, [id number] Forms: ED Department Discharge Additional Instructions: 1) keep wound clean dry covered and elevate leg as much as possible 2) wound check at clinic within 48 hours 3) return if wound looks worse rx given; clindamycin 150mg qid x 40 vicodin 5/325mg bid prn pain x 6 - My Orders Last 24 Hours: My Active Orders 12/04/17 23:58 CULTURE BLOOD [BC] Stat CULTURE WOUND [RM] Stat - Assessment/Plan Last 24 Hours: My Active Orders 12/04/17 23:58 CULTURE BLOOD [BC] Stat CULTURE WOUND [RM] Stat
[2017-12-05 00:33] LABS: CHLORIDE,CL 106 mmol/L (101-111); SODIUM,NA 138 mmol/L (135-145)
== END 2017-12-05 02:03 | disposition home or self-care (01) ==
LOC: DL.ED 23:27
DX: S81.802A Unspecified open wound, left lower leg, initial encounter (principal); F17.210 Nicotine dependence, cigarettes, uncomplicated; Z91.011 Allergy to milk products; W20.8XXA Other cause of strike by thrown, projected or falling object, initial encounter; Y99.0 Civilian activity done for income or pay
CPT/HCPCS: 36415; 80053; 83605; 85025; 87040; 96361; 96365; 96375; 99283; J1885; J7030; J7050; S0077

== ENCOUNTER 2018-02-04 22:57 | Emergency (ER) | payer MEDICAID, OTHER ==
[2018-02-04] MEDS ORDERED: Cyclobenzaprine 10 MG Tab PO ONE (22:58)
[2018-02-04] MEDS ORDERED: Ibuprofen 600 MG Tab PO ONE (22:58)
[2018-02-04 23:04] VITALS: BP 141/90
[2018-02-04] MEDS ORDERED: Ketorolac 30 MG/ML SDV IM ONE (23:14)
--- NOTE | 2018-02-04 23:27 | EDM.PDOC ---
ED HPI GENERAL MEDICAL PROBLEM - General Chief Complaint: Back Pain or Injury Stated Complaint: BACK PAIN [id number] Time Seen by Provider: 02/04/18 23:05 Source of Information: Reports: Patient History Limitations: Reports: No Limitations - History of Present Illness INITIAL COMMENTS - FREE TEXT/NARRATIVE: ED with c/o low mid back pain. Reprts hx arthritis and DDD. 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 Did not have any tylenol or Ibuprofen at home so came to ED. No weakness numbness or radiation down either leg. Lower Back Pain Score (Numeric/FACES): 8 - Related Data Allergies Allergy/AdvReac Type Severity Reaction Status Date / Time lactose AdvReac Nausea and Verified 02/04/18 23:04 Vomiting Home Meds: Home Meds . [No Known Home Meds] 04/16/17 [History] ARIPiprazole [Aripiprazole] 10 mg PO DAILY 02/04/18 [History] buPROPion [Wellbutrin SR] 100 mg PO DAILY 02/04/18 [History] Past Medical History - Past Health History Medical/Surgical History: Denies Medical/Surgical History HEENT History: Reports: Impaired Vision Other HEENT History: wears contacts Cardiovascular History: Reports: Cardiomyopathy Respiratory History: Reports: None Gastrointestinal History: Reports: None Genitourinary History: Reports: None Musculoskeletal History: Reports: Arthritis, Back Pain, Chronic, Other (See Below) Other Musculoskeletal History: degenerative disk , bone spurs to back Neurological History: Reports: Migraines Psychiatric History: Reports: None Endocrine/Metabolic History: Reports: None Hematologic History: Reports: None Immunologic History: Reports: None Oncologic (Cancer) History: Reports: None Dermatologic History: Reports: None - Infectious Disease History Infectious Disease History: Reports: Chicken Pox Social & Family History - Family History Family Medical History: Noncontributory - Tobacco Use Smoking Status *Q: Current Every Day Smoker Years of Tobacco use: 24 Packs/Tins Daily: 0.5 Second Hand Smoke Exposure: Yes - Caffeine Use Caffeine Use: Reports: Coffee, Energy Drinks, Soda, Tea - Recreational Drug Use Recreational Drug Use: No - Living Situation & Occupation Living situation: Reports: with Family Occupation: Employed ED ROS GENERAL - Review of Systems Review Of Systems: ROS reveals no pertinent complaints other than HPI. ED EXAM,LOWER BACK PAIN/INJURY - Physical Exam Exam: See Below Exam Limited By: No Limitations General Appearance: Alert, Moderate Distress Eye Exam: Bilateral Eye: EOMI Ears: Normal External Exam Nose: Normal Inspection Throat/Mouth: Normal Inspection, Normal Voice, Inflammation Head: Normocephalic Neck: Normal Inspection Respiratory/Chest: No Respiratory Distress, Lungs Clear, Normal Breath Sounds Cardiovascular: Normal Peripheral Pulses, Regular Rate, Rhythm GI/Abdominal: Soft Back Exam: Muscle Spasm, Paraspinal Tenderness (mild centrallow lumbar), Vertebral Tenderness, Other (favoring sitting to side than sitting straight .). No: CVA Tenderness (L), CVA Tenderness (R) Extremities: Normal Inspection Neurological: Alert, Normal Mood/Affect, Normal Dorsiflexion, Normal Plantar Flexion, Normal Gait (slow slight stoop), Normal Reflexes, Oriented x 3 DTR - Lower Extremities: 2+: Knee (R), Knee (L) Psychiatric: Normal Affect, Normal Mood Skin Exam: Warm, Dry, Intact, Normal Color Course - Vital Signs Last Recorded V/S: Last Vital Signs Temp 97.5 F 02/04/18 22:59 Pulse 105 H 02/04/18 22:59 Resp 18 02/04/18 22:59 BP 141/90 H 02/04/18 22:59 Pulse Ox 97 02/04/18 22:59 - Orders/Labs/Meds Meds: Medications Discontinued Medications Generic Name Dose Route Start Last Admin Trade Name Freq PRN Reason Stop Dose Admin Cyclobenzaprine HCl Confirm 02/04/18 23:33 02/04/18 23:45 Flexeril Administered 02/04/18 23:34 Not Given Dose 10 mg .ROUTE .STK-MED ONE Ibuprofen Confirm 02/04/18 23:32 02/04/18 23:46 Motrin Administered 02/04/18 23:33 Not Given Dose 600 mg .ROUTE .STK-MED ONE Ketorolac Tromethamine 30 mg 02/04/18 23:14 02/04/18 23:21 Toradol IM 02/04/18 23:15 30 mg ONETIME ONE Administration Orphenadrine Citrate 60 mg 02/04/18 23:15 02/04/18 23:23 Norflex IM 02/04/18 23:16 60 mg ONETIME ONE Administration - Re-Assessments/Exams Free Text/Narrative Re-Assessment/Exam: 02/05/18 02:23 patient noted to have taken additional Flexeril and Ibuprofen immediately upon leaving ED that was discharged home with him to take in 8 hours. Departure - Departure Time of Disposition: 23:29 Disposition: Home, Self-Care 01 Condition: Good Clinical Impression: Low back pain Qualifiers: Chronicity: chronic Back pain laterality: unspecified Sciatica presence: without sciatica Qualified Code(s): M54.5 - Low back pain - Discharge Information Instructions: Back Pain, Adult, [id number] Referrals: Rigoberto Rosenberg MD [Primary Care Provider] - Forms: ED Department Discharge Additional Instructions: flexeril 10mg twice daily as needed for back spasm #5 Ibuprofen 600mg one every 6 hours as needed for low back pain cool pack to low back clinic follow up next week if not improving urgent follow up if weakness or loss of control of bowel or bladder.
[2018-02-04] MEDS ORDERED: Ibuprofen 600 MG Tab ONE (23:32)
[2018-02-04] MEDS ORDERED: Cyclobenzaprine 10 MG Tab ONE (23:33)
== END 2018-02-04 23:41 | disposition home or self-care (01) ==
LOC: DL.ED 22:57
DX: M54.5 Low back pain (principal); F17.210 Nicotine dependence, cigarettes, uncomplicated; Z91.011 Allergy to milk products
CPT/HCPCS: 96372; 99283; A9270; J1885; J2360

== ENCOUNTER 2018-05-07 18:48 | Emergency (ER) | payer MEDICAID, OTHER ==
[2018-05-07] MEDS ORDERED: Acetaminophen/HYDROcodone 325-10 MG Tab PO ONE (18:49)
[2018-05-07 19:04] VITALS: BP 153/91
--- NOTE | 2018-05-07 19:11 | EDM.PDOC ---
ED HPI GENERAL MEDICAL PROBLEM - General Chief Complaint: Lower Extremity Injury/Pain Stated Complaint: FRACTURE? 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 Right 5-Little toe Pain Score (Numeric/FACES): 7 - Related Data Allergies Allergy/AdvReac Type Severity Reaction Status Date / Time lactose AdvReac Nausea and Verified 05/07/18 18:56 Vomiting Home Meds: Home Meds ARIPiprazole [Aripiprazole] 10 mg PO DAILY 02/04/18 [History] buPROPion [Wellbutrin SR] 100 mg PO DAILY 02/04/18 [History] Past Medical History - Past Health History Medical/Surgical History: Denies Medical/Surgical History HEENT History: Reports: Impaired Vision Other HEENT History: wears contacts Cardiovascular History: Reports: Cardiomyopathy Respiratory History: Reports: None Gastrointestinal History: Reports: None Genitourinary History: Reports: None Musculoskeletal History: Reports: Arthritis, Back Pain, Chronic, Other (See Below) Other Musculoskeletal History: degenerative disk , bone spurs to back Neurological History: Reports: Migraines Psychiatric History: Reports: Depression Endocrine/Metabolic History: Reports: None Hematologic History: Reports: None Immunologic History: Reports: None Oncologic (Cancer) History: Reports: None Dermatologic History: Reports: None - Infectious Disease History Infectious Disease History: Reports: Chicken Pox Social & Family History - Family History Family Medical History: Noncontributory - Tobacco Use Smoking Status *Q: Current Every Day Smoker Years of Tobacco use: 20 Packs/Tins Daily: 0.5 Used Tobacco, but Quit: No Second Hand Smoke Exposure: Yes - Caffeine Use Caffeine Use: Reports: Coffee - Recreational Drug Use Recreational Drug Use: No - Living Situation & Occupation Living situation: Reports: with Family Occupation: Employed Review of Systems - Review of Systems Review Of Systems: ROS reveals no pertinent complaints other than HPI. ED EXAM, GENERAL - Physical Exam Exam: See Below Exam Limited By: No Limitations General Appearance: Alert, WD/WN, Mild Distress, Other (discomfort) Ears: Hearing Grossly Normal Throat/Mouth: Normal Voice, No Airway Compromise Head: Atraumatic Neck: Non-Tender, Full Range of Motion Respiratory/Chest: No Respiratory Distress Cardiovascular: Regular Rate, Rhythm GI/Abdominal: Soft, Non-Tender Extremities: Other (right 5th toe tender swollen, gait limited to pain) Neurological: Alert, Oriented, No Motor/Sensory Deficits Psychiatric: Flat Affect Skin Exam: Warm, Dry, Normal Color Lymphatic: No Adenopathy Course - Vital Signs Last Recorded V/S: Last Vital Signs Temp 35.7 C 05/07/18 19:03 Pulse 87 05/07/18 19:03 Resp 18 05/07/18 19:03 BP 153/91 H 05/07/18 19:03 Pulse Ox 99 05/07/18 19:03 - Orders/Labs/Meds Orders: Active Orders 24 hr Category Date Time Status Foot 2V Rt [CR] Urgent Exams 05/07/18 19:01 Stop Req Foot Comp Min 3V Rt [CR] Urgent Exams 05/07/18 19:02 Taken - Re-Assessments/Exams Free Text/Narrative Re-Assessment/Exam: 05/07/18 19:30 results discussed with pt. Departure - Departure Time of Disposition: 19:30 Disposition: Home, Self-Care 01 Condition: Good Clinical Impression: Toe fracture, right Qualifiers: Encounter type: initial encounter Toe: lesser toe Fracture type: closed Phalanx : proximal Fracture alignment: nondisplaced Qualified Code(s): S92.514A - Nondisplaced fracture of proximal phalanx of right lesser toe(s), initial encounter for closed fracture - Discharge Information Instructions: Toe Fracture, [id number] Forms: ED Department Discharge Additional Instructions: 1) tape 5th toe next to 4th toe for 2 week 2) change tape daily 3) elevate foot as much as possible 4) follow up at clinic rx jen cabrera x 1
[2018-05-07] MEDS ORDERED: Acetaminophen/HYDROcodone 325-10 MG Tab ONE (19:30)
== END 2018-05-07 19:37 | disposition home or self-care (01) ==
LOC: DL.ED 18:48
DX: S92.514A Nondisplaced fracture of proximal phalanx of right lesser toe(s), initial encounter for closed fracture (principal); F17.210 Nicotine dependence, cigarettes, uncomplicated; Z91.011 Allergy to milk products; Z79.899 Other long term (current) drug therapy; X58.XXXA Exposure to other specified factors, initial encounter
CPT/HCPCS: 73630; 99283; A9270

== ENCOUNTER 2019-01-31 11:29 | Emergency (ER) | payer MEDICAID ==
[2019-01-31] MEDS ORDERED: Vancomycin 2 GM in Sodium Chloride 0.9% 500 ML IV ONE (11:57)
--- NOTE | 2019-01-31 12:08 | EDM.PDOC ---
ED HPI GENERAL MEDICAL PROBLEM - General Chief Complaint: Bite:Animal, Insect Stated Complaint: SPIDER BITE WEEK AGO/SWOLLEN Time Seen by Provider: 01/31/19 11:45 Source of Information: Reports: Patient History Limitations: Reports: No Limitations - History of Present Illness INITIAL COMMENTS - FREE TEXT/NARRATIVE: This 33 yo male patient reports to the ED with pain and swelling in his left elbow. The patient reports he thinks he was bit by something about 1 week ago. The patient reports increased pain and swelling since that time. About 3 days ago, the patient reports he attempted to drain his elbow by cutting the area with a knife. The patient reports increased symptoms since that attempt. The patient admits to IV drug use in the past, but has not used in his right arm in over a month. Onset: Gradual Duration: Day(s):, Constant, Getting Worse Location: Reports: Upper Extremity, Right Quality: Reports: Ache, Burning Severity: Moderate Improves with: Reports: None Worsens with: Reports: None Context: Reports: Other Associated Symptoms: Reports: No Other Symptoms Right Elbow Pain Score (Numeric/FACES): 10 - Related Data Allergies Allergy/AdvReac Type Severity Reaction Status Date / Time lactose AdvReac Nausea and Verified 01/31/19 11:35 Vomiting Home Meds: Home Meds traZODone HCl [Trazodone HCl] 50 mg PO BEDTIME 12/12/18 [History] Past Medical History - Past Health History Medical/Surgical History: Denies Medical/Surgical History HEENT History: Reports: Impaired Vision Other HEENT History: wears contacts Cardiovascular History: Reports: Cardiomyopathy Respiratory History: Reports: None Gastrointestinal History: Reports: None Genitourinary History: Reports: None Musculoskeletal History: Reports: Arthritis, Back Pain, Chronic, Other (See Below) Other Musculoskeletal History: degenerative disk , bone spurs to back Neurological History: Reports: Migraines Psychiatric History: Reports: Depression Endocrine/Metabolic History: Reports: Diabetes, Type II Hematologic History: Reports: None Immunologic History: Reports: None Oncologic (Cancer) History: Reports: None Dermatologic History: Reports: None - Infectious Disease History Infectious Disease History: Reports: None - Past Surgical History HEENT Surgical History: Reports: None Cardiovascular Surgical History: Reports: None Respiratory Surgical History: Reports: None GI Surgical History: Reports: None Neurological Surgical History: Reports: None Musculoskeletal Surgical History: Reports: Other (See Below) Other Musculoskeletal Surgeries/Procedures:: surgery on right hand Social & Family History - Family History Family Medical History: Noncontributory - Tobacco Use Smoking Status *Q: Current Every Day Smoker Years of Tobacco use: 21 Packs/Tins Daily: 1 Second Hand Smoke Exposure: Yes - Caffeine Use Caffeine Use: Reports: Coffee, Soda - Recreational Drug Use Recreational Drug Use: Yes Drug Use in Last 12 Months: Yes Recreational Drug Type: Reports: Other (see below) Other Recreational Drug Type: "everything" - Living Situation & Occupation Living situation: Reports: with Family Occupation: Employed ED ROS GENERAL - Review of Systems Review Of Systems: ROS reveals no pertinent complaints other than HPI. ED EXAM, ANIMAL BITE - Physical Exam Exam: See Below Exam Limited By: No Limitations General Appearance: Alert, WD/WN, Moderate Distress Eye Exam: Bilateral Eye: EOMI, Normal Inspection, PERRL Ears: Normal External Exam, Normal Canal, Hearing Grossly Normal, Normal TMs Nose: Normal Inspection, Normal Mucosa, No Blood Throat/Mouth: Normal Inspection, Normal Lips, Normal Teeth, Normal Gums, Normal Oropharynx, Normal Voice, No Airway Compromise Head: Atraumatic, Normocephalic Neck: Normal Inspection, Supple, Non-Tender, Full Range of Motion Respiratory/Chest: No Respiratory Distress Cardiovascular: Normal Peripheral Pulses, Regular Rate, Rhythm, No Edema, No Gallop, No JVD, No Murmur, No Rub GI/Abdominal: Normal Bowel Sounds, Soft, Non-Tender, No Organomegaly, No Distention, No Abnormal Bruit, No Mass (Male) Exam: Deferred Rectal (Males) Exam: Deferred Back Exam: Normal Inspection, Full Range of Motion, NT Extremities: Arm Pain (right elbow erythema with increased warmth over the area) Neurological: Alert, Oriented, CN II-XII Intact, Normal Cognition, Normal Gait, Normal Reflexes Psychiatric: Normal Affect, Normal Mood Skin Exam: Warm/Dry, DRY, I, Normal Color, NR Course - Vital Signs Last Recorded V/S: Last Vital Signs Temp 35.3 C 01/31/19 11:32 Pulse 110 H 01/31/19 11:32 Resp 18 01/31/19 11:32 BP 157/86 H 01/31/19 11:32 Pulse Ox 98 01/31/19 11:32 - Orders/Labs/Meds Orders: Active Orders 24 hr Category Date Time Status CULTURE BLOOD [BC] Stat Lab 01/31/19 11:34 Ordered Labs: Laboratory Tests 01/31/19 01/31/19 01/31/19 Range/Units 11:44 11:44 11:44 WBC 10.9 H (5.0-10.0) 10^3/uL RBC 4.90 (4.6-6.2) 10^6/uL Hgb 15.3 (14.0-18.0) g/dL Hct 44.1 (40.0-54.0) % MCV 90.0 D (80-100) fL MCH 31.2 (27.0-34.0) pg MCHC 34.7 (33.0-35.0) g/dL Plt Count 454 H D (150-450) 10^3/uL Neut % (Auto) 66.7 (42.2-75.2) % Lymph % (Auto) 22.9 (20.5-50.1) % [place] % (Auto) 9.4 H (2-8) % Eos % (Auto) 0.6 L (1.0-3.0) % Baso % (Auto) 0.4 (0.0-1.0) % Sodium 135 (135-145) mmol/L Potassium 3.4 L (3.6-5.0) mmol/L Chloride 102 (101-111) mmol/L Carbon Dioxide 22.0 (21.0-31.0) mmol/L Anion Gap 14.4 BUN 20 H (7-18) mg/dL Creatinine 1.0 (0.6-1.3) mg/dL Est Cr Clr Drug Dosing 136.65 mL/min Estimated GFR (MDRD) > 60 BUN/Creatinine Ratio 20.00 Glucose 177 H (74-105) mg/dL Lactic Acid 0.8 (0.5-2.2) mmol/L Calcium 8.7 (8.4-10.2) mg/dl Total Bilirubin 1.0 (0.2-1.0) mg/dL AST 47 H (10-42) IU/L ALT 99 H (10-60) IU/L Alkaline Phosphatase 106 (42-121) IU/L Total Protein 8.3 H (6.7-8.2) g/dl Albumin 3.7 (3.2-5.5) g/dl Globulin 4.6 Albumin/Globulin Ratio 0.80 Meds: Medications Discontinued Medications Generic Name Dose Route Start Last Admin Trade Name Dany PRN Reason Stop Dose Admin Vancomycin HCl 2 gm/ Sodium 500 mls @ 250 mls/hr 01/31/19 11:57 01/31/19 12: 13 Chloride IV 01/31/19 13:56 250 mls/hr ONETIME ONE Administration Ketorolac Tromethamine 30 mg 01/31/19 13:35 01/31/19 13:39 Toradol IVPUSH 01/31/19 13:36 30 mg ONETIME ONE Administration - Re-Assessments/Exams Free Text/Narrative Re-Assessment/Exam: 01/31/19 13:37 The patient was advised of the examination and lab results. The patient reports continued pain in his arm. The patient was advised that we would finish the IV antibiotics here, start him on 2 different oral antibiotics and he should follow -up with his primary care facility early next week. Departure - Departure Time of Disposition: 14:52 Disposition: Home, Self-Care 01 Condition: Fair Clinical Impression: Cellulitis Qualifiers: Site of cellulitis: extremity Site of cellulitis of extremity: upper extremity Laterality: right Qualified Code(s): L03.113 - Cellulitis of right upper limb - Discharge Information *PRESCRIPTION DRUG MONITORING PROGRAM REVIEWED*: Not Applicable *COPY OF PRESCRIPTION DRUG MONITORING REPORT IN PATIENT SHELLEY: Not Applicable Instructions: Cellulitis, Adult, Gbzy-[id number] Forms: ED Department Discharge Care Plan Goals: The patient was advised of the examination and lab results during the visit. The patient was given IV Vancomycin and IV Toradol while in the ED. The patient was discharged with a script for Bactrim DS to take 1 by mouth 2 times per day for 14 days and Keflex (500 mg) to take 1 by mouth 3 times per day for 14 days. The patient should follow-up with his primary care facility early next week for continued evaluation and management. If the patient has any additional symptoms or concerns, the patient should either return to the emergency department or visit his primary care facility. - My Orders Last 24 Hours: My Active Orders 01/31/19 11:34 CULTURE BLOOD [BC] Stat - Assessment/Plan Last 24 Hours: My Active Orders 01/31/19 11:34 CULTURE BLOOD [BC] Stat
[2019-01-31 12:10] LABS: ANION GAP 14.4; CHLORIDE,CL 102 mmol/L (101-111); SODIUM,NA 135 mmol/L (135-145)
[2019-01-31] MEDS ORDERED: Ketorolac 30 MG/ML SDV IVPUSH ONE (13:35)
[2019-01-31 15:00] VITALS: BP 128/73
== END 2019-01-31 14:58 | disposition home or self-care (01) ==
LOC: DL.ED 11:29
DX: L03.113 Cellulitis of right upper limb (principal); F17.210 Nicotine dependence, cigarettes, uncomplicated; E11.9 Type 2 diabetes mellitus without complications; Z91.011 Allergy to milk products
CPT/HCPCS: 36415; 80053; 83605; 85025; 87040; 96365; 96366; 96375; 99283; J1885; J3370; J7040

== ENCOUNTER 2020-06-24 20:24 | Emergency (ER) | payer MEDICAID ==
[2020-06-24 20:34] VITALS: BP 147/87; PULSE 98
[2020-06-24] MEDS ORDERED: GI Cocktail Oral Solution 30 ML PO ONE (21:23)
--- NOTE | 2020-06-24 21:56 | CR ---
PROCEDURE INFORMATION: Exam: XR Chest, 1 View Exam date and time: 06/24/2020 9:41 PM Age: 34 years old Clinical indication: Chest pain; Additional info: Epigastric, chest pain, ivdu TECHNIQUE: Imaging protocol: XR of the chest Views: 1 view. COMPARISON: CR Ribs 2V w Chest Rt 09/03/2018 9:37 PM FINDINGS: Lungs: Ill-defined nonspecific ground-glass opacities are noted in both lungs. These are new since the prior study. Pleural space: There are no pleural effusions present. Heart/Mediastinum: The heart is not enlarged. The pulmonary arteries are not enlarged. Bones/joints: Unremarkable IMPRESSION: Ill-defined ground-glass opacities in both lungs.
[2020-06-24 21:57] LABS: CHLORIDE,CL 97 mmol/L (98-107); SODIUM,NA 132 mmol/L (136-145)
--- NOTE | 2020-06-25 01:57 | EDM.PDOC ---
ED HPI GENERAL MEDICAL PROBLEM - General Chief Complaint: Chest Pain Stated Complaint: CHEST PAINS Time Seen by Provider: 06/24/20 20:35 Source of Information: Reports: Patient, RN History Limitations: Reports: No Limitations - History of Present Illness INITIAL COMMENTS - FREE TEXT/NARRATIVE: ED with c/o epigastric pain for past week and tonight radiating to back. Denies cough fever or chills. Has not been seen or tried anything for discomfort. Admits meth use 5 days prior and daily ETOH use. No vomiting. No dark stools. No known COVID exposure. SO tested negative today. Epigastric Pain Score (Numeric/FACES): 5 - Related Data Allergies Allergy/AdvReac Type Severity Reaction Status Date / Time lactose AdvReac Nausea and Verified 06/24/20 20:35 Vomiting Home Meds: Home Meds metFORMIN [Glucophage] tab PO 06/24/20 [History] Past Medical History - Past Health History Medical/Surgical History: Denies Medical/Surgical History HEENT History: Reports: Impaired Vision Other HEENT History: wears contacts Cardiovascular History: Reports: Cardiomyopathy Respiratory History: Reports: None Gastrointestinal History: Reports: None Genitourinary History: Reports: None Musculoskeletal History: Reports: Arthritis, Back Pain, Chronic, Other (See Below) Other Musculoskeletal History: degenerative disk , bone spurs to back Neurological History: Reports: Migraines Psychiatric History: Reports: Addiction, Depression Endocrine/Metabolic History: Reports: Diabetes, Type II Hematologic History: Reports: None Immunologic History: Reports: None Oncologic (Cancer) History: Reports: None Dermatologic History: Reports: None - Infectious Disease History Infectious Disease History: Reports: None - Past Surgical History HEENT Surgical History: Reports: None Cardiovascular Surgical History: Reports: None Respiratory Surgical History: Reports: None GI Surgical History: Reports: None Neurological Surgical History: Reports: None Musculoskeletal Surgical History: Reports: Other (See Below) Other Musculoskeletal Surgeries/Procedures:: surgery on right hand Social & Family History - Family History Family Medical History: Noncontributory - Tobacco Use Tobacco Use Status *Q: Current Every Day Tobacco User Years of Tobacco use: 10 Packs/Tins Daily: 0.5 - Caffeine Use Caffeine Use: Reports: None - Recreational Drug Use Recreational Drug Use: Yes Recreational Drug Type: Reports: Marijuana/Hashish, Methamphetamine - Living Situation & Occupation Living situation: Reports: with Family Occupation: Employed ED ROS GENERAL - Review of Systems Review Of Systems: Comprehensive ROS is negative, except as noted in HPI. ED EXAM, GENERAL - Physical Exam Exam: See Below Exam Limited By: No Limitations General Appearance: Alert, Mild Distress Eye Exam: Bilateral Eye: EOMI Ears: Normal External Exam, Hearing Grossly Normal Nose: Normal Inspection Throat/Mouth: Normal Inspection, Normal Voice Head: Atraumatic, Normocephalic Neck: Normal Inspection Respiratory/Chest: No Respiratory Distress, Decreased Breath Sounds. No: Rales, Rhonchi, Wheezing Cardiovascular: Normal Peripheral Pulses, Regular Rate, Rhythm GI/Abdominal: Soft, Tender (epigastric, mild JENNIFER). No: Distended, Guarding Back Exam: Normal Inspection, Full Range of Motion Extremities: Normal Inspection, Normal Range of Motion Psychiatric: Flat Affect Skin Exam: Warm, Dry, Intact, Normal Color Course - Vital Signs Last Recorded V/S: Last Vital Signs Temp 98.4 F 06/24/20 20:31 Pulse 98 06/24/20 20:31 Resp 18 06/24/20 20:31 BP 147/87 H 06/24/20 20:31 Pulse Ox 96 06/24/20 20:31 - Orders/Labs/Meds Labs: Laboratory Tests 06/24/20 06/24/20 06/24/20 Range/Units 21:05 21:05 21:20 WBC 5.5 (5.0-10.0) 10^3/uL RBC 4.76 (4.6-6.2) 10^6/uL Hgb 15.3 (14.0-18.0) g/dL Hct 45.3 (40.0-54.0) % MCV 95.2 D (80-100) fL MCH 32.1 (27.0-34.0) pg MCHC 33.8 (33.0-35.0) g/dL Plt Count 217 D (150-450) 10^3/uL Neut % (Auto) 60.2 (42.2-75.2) % Lymph % (Auto) 28.7 (20.5-50.1) % Wolfe % (Auto) 8.7 H (2-8) % Eos % (Auto) 2.2 (1.0-3.0) % Baso % (Auto) 0.2 (0.0-1.0) % D-Dimer, Quantitative (0-400) ng/mL Sodium (136-145) mmol/L Potassium (3.5-5.1) mmol/L Chloride (98-107) mmol/L Carbon Dioxide (21-32) mmol/L Anion Gap (7-13) mEq/L BUN (7-18) mg/dL Creatinine (0.70-1.30) mg/dL Est Cr Clr Drug Dosing mL/min Estimated GFR (MDRD) BUN/Creatinine Ratio (No establ ref range) Glucose (74-99) mg/dL Calcium (8.5-10.1) mg/dL Total Bilirubin (0.2-1.0) mg/dL AST (15-37) U/L ALT (16-63) U/L Alkaline Phosphatase (46-116) U/L Total Protein (6.4-8.2) g/dL Albumin (3.4-5.0) g/dL Globulin Albumin/Globulin Ratio Amylase (25-115) U/L Lipase (73-393) U/L Urine Color Yellow (YELLOW) Urine Appearance Clear (CLEAR) Urine pH 5.0 (5.0-9.0) Ur Specific [place] 1.010 (1.005-1.030) Urine Protein Negative (NEGATIVE) Urine Glucose (UA) >=1000 H (NEGATIVE) Urine Ketones Negative (NEGATIVE) Urine Occult Blood Negative (NEGATIVE) Urine Nitrite Negative (NEGATIVE) Urine Bilirubin Negative (NEGATIVE) Urine Urobilinogen 0.2 (0.2-1.0) mg/dL Ur Leukocyte Esterase Negative (NEGATIVE) Urine Opiates Screen Negative (NEGATIVE) Ur Oxycodone Screen Negative (NEGATIVE) Urine Methadone Screen Negative (NEGATIVE) Ur Barbiturates Screen Negative (NEGATIVE) U Tricyclic Antidepress Negative (NEGATIVE) Ur Phencyclidine Scrn Negative (NEGATIVE) Ur Amphetamine Screen Negative (NEGATIVE) U Methamphetamines Scrn Negative (NEGATIVE) Urine MDMA Screen Negative (NEGATIVE) U Benzodiazepines Scrn Negative (NEGATIVE) Urine Cocaine Screen Negative (NEGATIVE) U Marijuana (THC) Screen Negative (NEGATIVE) 06/24/20 06/24/20 Range/Units 21:20 21:20 WBC (5.0-10.0) 10^3/uL RBC (4.6-6.2) 10^6/uL Hgb (14.0-18.0) g/dL Hct (40.0-54.0) % MCV (80-100) fL MCH (27.0-34.0) pg MCHC (33.0-35.0) g/dL Plt Count (150-450) 10^3/uL Neut % (Auto) (42.2-75.2) % Lymph % (Auto) (20.5-50.1) % Wolfe % (Auto) (2-8) % Eos % (Auto) (1.0-3.0) % Baso % (Auto) (0.0-1.0) % D-Dimer, Quantitative < 100 (0-400) ng/mL Sodium 132 L (136-145) mmol/L Potassium 4.0 (3.5-5.1) mmol/L Chloride 97 L (98-107) mmol/L Carbon Dioxide 26 (21-32) mmol/L Anion Gap 13.0 (7-13) mEq/L BUN 12 (7-18) mg/dL Creatinine 0.99 (0.70-1.30) mg/dL Est Cr Clr Drug Dosing 136.71 mL/min Estimated GFR (MDRD) > 60 BUN/Creatinine Ratio 12.1 (No establ ref range) Glucose 545 H* (74-99) mg/dL Calcium 8.3 L (8.5-10.1) mg/dL Total Bilirubin 0.2 (0.2-1.0) mg/dL AST 27 (15-37) U/L ALT 57 (16-63) U/L Alkaline Phosphatase 105 (46-116) U/L Total Protein 7.7 (6.4-8.2) g/dL Albumin 2.6 L (3.4-5.0) g/dL Globulin 5.1 Albumin/Globulin Ratio 0.51 Amylase 35 (25-115) U/L Lipase 141 (73-393) U/L Urine Color (YELLOW) Urine Appearance (CLEAR) Urine pH (5.0-9.0) Ur Specific [place] (1.005-1.030) Urine Protein (NEGATIVE) Urine Glucose (UA) (NEGATIVE) Urine Ketones (NEGATIVE) Urine Occult Blood (NEGATIVE) Urine Nitrite (NEGATIVE) Urine Bilirubin (NEGATIVE) Urine Urobilinogen (0.2-1.0) mg/dL Ur Leukocyte Esterase (NEGATIVE) Urine Opiates Screen (NEGATIVE) Ur Oxycodone Screen (NEGATIVE) Urine Methadone Screen (NEGATIVE) Ur Barbiturates Screen (NEGATIVE) U Tricyclic Antidepress (NEGATIVE) Ur Phencyclidine Scrn (NEGATIVE) Ur Amphetamine Screen (NEGATIVE) U Methamphetamines Scrn (NEGATIVE) Urine MDMA Screen (NEGATIVE) U Benzodiazepines Scrn (NEGATIVE) Urine Cocaine Screen (NEGATIVE) U Marijuana (THC) Screen (NEGATIVE) Meds: Medications Discontinued Medications Generic Name Dose Route Start Last Admin Trade Name Freq PRN Reason Stop Dose Admin Al Hydroxide/Mg Hydroxide 30 ml 06/24/20 21:23 06/24/20 21:27 Gi Cocktail PO 06/24/20 21:24 30 ml ONETIME ONE Administration - Re-Assessments/Exams Free Text/Narrative Re-Assessment/Exam: 06/25/20 01:56 Reports complete relief of sx after GI cocktail. Rare cough, attemted COVID testing Patient refused. signed out AMA. Departure - Departure Time of Disposition: 22:25 Disposition: Against Medical Advice 07 Condition: Good Clinical Impression: Epigastric pain, Alcohol abuse, Methamphetamine abuse, Abnormal CXR - Discharge Information Forms: ED Department Discharge Sepsis Event Note (ED) - Evaluation Sepsis Screening Result: No Definite Risk - Focused Exam Vital Signs: Vital Signs Temp Pulse Resp BP Pulse Ox 06/24/20 20:31 98.4 F 98 18 147/87 H 96
== END 2020-06-24 22:14 | disposition left against medical advice (07) ==
LOC: DL.ED 20:24
DX: R10.13 Epigastric pain (principal); F15.10 Other stimulant abuse, uncomplicated; F10.10 Alcohol abuse, uncomplicated; R93.89 Abnormal findings on diagnostic imaging of other specified body structures; E11.9 Type 2 diabetes mellitus without complications; F17.210 Nicotine dependence, cigarettes, uncomplicated; Z91.011 Allergy to milk products
CPT/HCPCS: 36415; 71045; 80053; 80305; 81003; 82150; 83690; 85025; 85379; 99285; A9270; 99283

== ENCOUNTER 2020-07-28 16:16 | Emergency (ER) | payer MEDICAID ==
[2020-07-28 16:26] VITALS: BP 132/79; PULSE 108
--- NOTE | 2020-07-28 16:29 | EDM.PDOCBH ---
ED HPI GENERAL MEDICAL PROBLEM - General Time Seen by Provider: 07/28/20 16:24 Source of Information: Reports: EMS History Limitations: Reports: Uncooperative - History of Present Illness INITIAL COMMENTS - FREE TEXT/NARRATIVE: Prior to being seen, the patient came out of the room yelling at nursing staff. The patient then left the ED against medical advice. - Related Data Allergies Allergy/AdvReac Type Severity Reaction Status Date / Time lactose AdvReac Nausea and Verified 06/24/20 20:35 Vomiting Home Meds: Home Meds metFORMIN [Glucophage] tab PO 06/24/20 [History] Past Medical History - Past Health History Medical/Surgical History: Denies Medical/Surgical History HEENT History: Reports: Impaired Vision Other HEENT History: wears contacts Cardiovascular History: Reports: Cardiomyopathy Respiratory History: Reports: None Gastrointestinal History: Reports: None Genitourinary History: Reports: None Musculoskeletal History: Reports: Arthritis, Back Pain, Chronic, Other (See Below) Other Musculoskeletal History: degenerative disk , bone spurs to back Neurological History: Reports: Migraines Psychiatric History: Reports: Addiction, Depression Endocrine/Metabolic History: Reports: Diabetes, Type II Hematologic History: Reports: None Immunologic History: Reports: None Oncologic (Cancer) History: Reports: None Dermatologic History: Reports: None - Infectious Disease History Infectious Disease History: Reports: None - Past Surgical History HEENT Surgical History: Reports: None Cardiovascular Surgical History: Reports: None Respiratory Surgical History: Reports: None GI Surgical History: Reports: None Neurological Surgical History: Reports: None Musculoskeletal Surgical History: Reports: Other (See Below) Other Musculoskeletal Surgeries/Procedures:: surgery on right hand Social & Family History - Family History Family Medical History: No Pertinent Family History - Caffeine Use Caffeine Use: Reports: None - Living Situation & Occupation Living situation: Reports: with Family Occupation: Employed ED ROS GENERAL - Review of Systems Review Of Systems: Unable To Obtain Reason Not Obtained: Patient left prior to assessment ED EXAM, BEHAVIORAL HEALTH - Physical Exam Exam: Not Obtained Reason Not Obtained: The patient left prior to assessment. COURSE, BEHAVIORAL HEALTH COMP - Course Orders, Labs, Meds: Active Orders 24 hr Category Date Time Status EKG Documentation Completion [RC] STAT Care 07/28/20 16:16 Ordered ACETAMINOPHEN [CHEM] Stat Lab 07/28/20 16:16 Ordered AMMONIA VENOUS [CHEM] Stat Lab 07/28/20 16:16 Ordered CBC WITH AUTO DIFF [HEME] Stat Lab 07/28/20 16:16 Ordered COMPREHENSIVE METABOLIC PN,CMP [CHEM] Stat Lab 07/28/20 16:16 Ordered CULTURE BLOOD [BC] Stat Lab 07/28/20 16:16 Ordered DRUG SCREEN URINE BIORAD [URCHEM] Stat Lab 07/28/20 16:16 Ordered ETHANOL BLOOD MEDICAL [CHEM] Stat Lab 07/28/20 16:16 Ordered LACTATE SEPSIS W/ REFLEX [CHEM] Stat Lab 07/28/20 16:16 Ordered MAGNESIUM [CHEM] Stat Lab 07/28/20 16:16 Ordered SALICYLATE [CHEM] Stat Lab 07/28/20 16:16 Ordered TROPONIN I [CHEM] Stat Lab 07/28/20 16:16 Ordered Departure - Departure Time of Disposition: 16:26 Disposition: Against Medical Advice 07 Condition: Undetermined Clinical Impression: Left against medical advice - Discharge Information *PRESCRIPTION DRUG MONITORING PROGRAM REVIEWED*: Not Applicable *COPY OF PRESCRIPTION DRUG MONITORING REPORT IN PATIENT SHELLEY: Not Applicable Care Plan Goals: The patient left the ED prior to being seen by the provider. The patient was yelling at nursing staff prior to leaving the ED. - My Orders Last 24 Hours: My Active Orders 07/28/20 16:16 EKG Documentation Completion [RC] STAT ACETAMINOPHEN [CHEM] Stat AMMONIA VENOUS [CHEM] Stat CBC WITH AUTO DIFF [HEME] Stat COMPREHENSIVE METABOLIC PN,CMP [CHEM] Stat CULTURE BLOOD [BC] Stat DRUG SCREEN URINE BIORAD [URCHEM] Stat ETHANOL BLOOD MEDICAL [CHEM] Stat LACTATE SEPSIS W/ REFLEX [CHEM] Stat MAGNESIUM [CHEM] Stat SALICYLATE [CHEM] Stat TROPONIN I [CHEM] Stat - Assessment/Plan Last 24 Hours: My Active Orders 07/28/20 16:16 EKG Documentation Completion [RC] STAT ACETAMINOPHEN [CHEM] Stat AMMONIA VENOUS [CHEM] Stat CBC WITH AUTO DIFF [HEME] Stat COMPREHENSIVE METABOLIC PN,CMP [CHEM] Stat CULTURE BLOOD [BC] Stat DRUG SCREEN URINE BIORAD [URCHEM] Stat ETHANOL BLOOD MEDICAL [CHEM] Stat LACTATE SEPSIS W/ REFLEX [CHEM] Stat MAGNESIUM [CHEM] Stat SALICYLATE [CHEM] Stat TROPONIN I [CHEM] Stat
== END 2020-07-28 16:25 | disposition left against medical advice (07) ==
LOC: DL.ED 16:16
DX: Z53.21 Procedure and treatment not carried out due to patient leaving prior to being seen by health care provider (principal)
CPT/HCPCS: 93005

== ENCOUNTER 2020-07-28 18:13 | Inpatient (IN) | payer MEDICAID ==
[2020-07-28 19:23] LABS: ANION GAP 17.8 mEq/L (7-13); CHLORIDE,CL 95 mmol/L (98-107); SODIUM,NA 129 mmol/L (136-145)
--- NOTE | 2020-07-28 19:32 | EDM.PDOCBH ---
ED HPI GENERAL MEDICAL PROBLEM - General Chief Complaint: Behavioral/Psych Time Seen by Provider: 07/28/20 19:00 Source of Information: Reports: Provider, RN History Limitations: Reports: Uncooperative - History of Present Illness INITIAL COMMENTS - FREE TEXT/NARRATIVE: Return for medical clearance. Seen earlier today, reported ingesting 4 handfuls of tylenol at 1pm today, first reported for back pain then to hurt himself, became aggressive during first visit and left, [facility] notified and brought back for evaluation. - Related Data Allergies Allergy/AdvReac Type Severity Reaction Status Date / Time lactose AdvReac Nausea and Verified 07/28/20 20:58 Vomiting Home Meds: Home Meds metFORMIN [Glucophage] tab PO 06/24/20 [History] Past Medical History - Past Health History Medical/Surgical History: Denies Medical/Surgical History HEENT History: Reports: Impaired Vision Other HEENT History: wears contacts Cardiovascular History: Reports: Cardiomyopathy Respiratory History: Reports: None Gastrointestinal History: Reports: None Genitourinary History: Reports: None Musculoskeletal History: Reports: Arthritis, Back Pain, Chronic, Other (See Below) Other Musculoskeletal History: degenerative disk , bone spurs to back Neurological History: Reports: Migraines Psychiatric History: Reports: Addiction, Depression Endocrine/Metabolic History: Reports: Diabetes, Type II Hematologic History: Reports: None Immunologic History: Reports: None Oncologic (Cancer) History: Reports: None Dermatologic History: Reports: None - Infectious Disease History Infectious Disease History: Reports: None - Past Surgical History HEENT Surgical History: Reports: None Cardiovascular Surgical History: Reports: None Respiratory Surgical History: Reports: None GI Surgical History: Reports: None Neurological Surgical History: Reports: None Musculoskeletal Surgical History: Reports: Other (See Below) Other Musculoskeletal Surgeries/Procedures:: surgery on right hand Social & Family History - Family History Family Medical History: No Pertinent Family History - Caffeine Use Caffeine Use: Reports: None - Living Situation & Occupation Living situation: Reports: with Family Occupation: Employed ED ROS GENERAL - Review of Systems Review Of Systems: Unable To Obtain Reason Not Obtained: Refuses to answer questions ED EXAM, BEHAVIORAL HEALTH - Physical Exam Exam: See Below Exam Limited By: Altered Mental Status General Appearance: Lethargic Eye Exam: Bilateral Eye: EOMI Ears: Normal External Exam Nose: Normal Inspection Throat/Mouth: Normal Inspection Head: Atraumatic, Normocephalic Neck: Normal Inspection Respiratory/Chest: No Respiratory Distress, Lungs Clear, Normal Breath Sounds Cardiovascular: Regular Rate, Rhythm, No Edema GI/Abdominal: Soft Back Exam: Full Range of Motion Extremities: Normal Range of Motion Neurological: Alert, Normal Cognition, Oriented x 3 Psychiatric: Poor Eye Contact, Suicidal Thoughts Skin Exam: Warm, Dry, Intact, Normal color, Tattoo(s) COURSE, BEHAVIORAL HEALTH COMP - Course Vital Signs: Last Vital Signs Temp 99.1 F 07/29/20 00:00 Pulse 97 07/29/20 00:00 Resp 30 H 07/29/20 00:00 BP 140/96 H 07/29/20 00:00 Pulse Ox 97 07/29/20 00:00 Orders, Labs, Meds: Active Orders 24 hr Category Date Time Status Admission Diagnosis [ADT] Stat ADT 07/28/20 20:24 Ordered Admission Status [Patient Status] [ADT] Routine ADT 07/28/20 20:24 Active Cardiac Monitoring [RC] . DIRECTED Care 07/28/20 20:24 Active Medication Orders Dextrose/Water (Dextrose 50% In Water) 50 ml IV ASDIRECTED PRN PRN Reason: Hypoglycemia Glucagon (Glucagen) 1 mg IM ASDIRECTED PRN PRN Reason: Hypoglycemia Heparin Sodium (Porcine) (Heparin Sodium) 5,000 units SUBCUT Q8HR [facility] Last Admin: 07/28/20 21:57 Dose: Not Given Documented by: BENJAMIN Sodium Chloride (Normal Saline) 1,000 mls @ 125 mls/hr IV ASDIRECTED [facility] Last Admin: 07/28/20 21:37 Dose: 125 mls/hr Documented by: BENJAMIN Acetylcysteine 10,000 mg/ (Sodium Chloride) 1,050 mls @ 65.625 mls/hr IV ONETIME ONE Stop: 07/29/20 19:29 Insulin Human Lispro (Humalog) 0 unit SUBCUT WITHMEALSANDBED [facility]; Protocol Ondansetron HCl (Zofran) 4 mg IVPUSH Q4H PRN PRN Reason: Nausea/Vomiting Last Admin: 07/29/20 00:13 Dose: 4 mg Documented by: Admin: 07/28/20 20:46 Dose: 4 mg Documented by: DERRICK Ondansetron HCl (Zofran Odt) 4 mg PO Q4H PRN PRN Reason: nausea, able to take PO Ondansetron HCl (Zofran) 4 mg IVPUSH Q4H PRN PRN Reason: Nausea/Vomiting Laboratory Tests 07/28/20 07/28/20 07/28/20 Range/Units 18:49 18:49 18:49 WBC 7.4 (5.0-10.0) 10^3/uL RBC 5.31 (4.6-6.2) 10^6/uL Hgb 16.8 D (14.0-18.0) g/dL Hct 47.0 (40.0-54.0) % MCV 88.5 D (80-100) fL MCH 31.6 (27.0-34.0) pg MCHC 35.7 H (33.0-35.0) g/dL Plt Count 240 (150-450) 10^3/uL Neut % (Auto) 55.0 (42.2-75.2) % Lymph % (Auto) 33.0 (20.5-50.1) % [place] % (Auto) 9.6 H (2-8) % Eos % (Auto) 1.9 (1.0-3.0) % Baso % (Auto) 0.5 (0.0-1.0) % PT (9.0-12.0) SEC INR (0.9-1.2) Sodium 129 L (136-145) mmol/L Potassium 4.8 (3.5-5.1) mmol/L Chloride 95 L (98-107) mmol/L Carbon Dioxide 21 (21-32) mmol/L Anion Gap 17.8 H (7-13) mEq/L BUN 22 H (7-18) mg/dL Creatinine 0.95 (0.70-1.30) mg/dL Est Cr Clr Drug Dosing TNP Estimated GFR (MDRD) > 60 BUN/Creatinine Ratio 23.2 (No establ ref range) Glucose 597 H* (74-99) mg/dL Calcium 8.9 (8.5-10.1) mg/dL Magnesium 2.0 (1.8-2.4) mg/dL Total Bilirubin 0.4 (0.2-1.0) mg/dL AST 109 H (15-37) U/L ALT 260 H (16-63) U/L Alkaline Phosphatase 115 (46-116) U/L Ammonia 19 (11-32) umol/L Troponin I < 0.017 (0.000-0.056) ng/mL Total Protein 8.4 H (6.4-8.2) g/dL Albumin 3.2 L (3.4-5.0) g/dL Globulin 5.2 Albumin/Globulin Ratio 0.62 Amylase 36 (25-115) U/L Urine Color (YELLOW) Urine Appearance (CLEAR) Urine pH (5.0-9.0) Ur Specific [place] (1.005-1.030) Urine Protein (NEGATIVE) Urine Glucose (UA) (NEGATIVE) Urine Ketones (NEGATIVE) Urine Occult Blood (NEGATIVE) Urine Nitrite (NEGATIVE) Urine Bilirubin (NEGATIVE) Urine Urobilinogen (0.2-1.0) mg/dL Ur Leukocyte Esterase (NEGATIVE) Salicylates (2.8-20(Therapeutic)) mg/dL Urine Opiates Screen (NEGATIVE) Ur Oxycodone Screen (NEGATIVE) Urine Methadone Screen (NEGATIVE) Acetaminophen 368 H* (10-30 (Therapeutic)) ug/mL Ur Barbiturates Screen (NEGATIVE) U Tricyclic Antidepress (NEGATIVE) Ur Phencyclidine Scrn (NEGATIVE) Ur Amphetamine Screen (NEGATIVE) U Methamphetamines Scrn (NEGATIVE) Urine MDMA Screen (NEGATIVE) U Benzodiazepines Scrn (NEGATIVE) Urine Cocaine Screen (NEGATIVE) U Marijuana (THC) Screen (NEGATIVE) Ethyl Alcohol < 3 (0) mg/dL SARS CoV-2 RNA Rapid BECKY (NEGATIVE) 07/28/20 07/28/20 07/28/20 Range/Units 18:49 18:49 19:38 WBC (5.0-10.0) 10^3/uL RBC (4.6-6.2) 10^6/uL Hgb (14.0-18.0) g/dL Hct (40.0-54.0) % MCV (80-100) fL MCH (27.0-34.0) pg MCHC (33.0-35.0) g/dL Plt Count (150-450) 10^3/uL Neut % (Auto) (42.2-75.2) % Lymph % (Auto) (20.5-50.1) % [place] % (Auto) (2-8) % Eos % (Auto) (1.0-3.0) % Baso % (Auto) (0.0-1.0) % PT 9.7 (9.0-12.0) SEC INR 1.0 (0.9-1.2) Sodium (136-145) mmol/L Potassium (3.5-5.1) mmol/L Chloride (98-107) mmol/L Carbon Dioxide (21-32) mmol/L Anion Gap (7-13) mEq/L BUN (7-18) mg/dL Creatinine (0.70-1.30) mg/dL Est Cr Clr Drug Dosing Estimated GFR (MDRD) BUN/Creatinine Ratio (No establ ref range) Glucose (74-99) mg/dL Calcium (8.5-10.1) mg/dL Magnesium (1.8-2.4) mg/dL Total Bilirubin (0.2-1.0) mg/dL AST (15-37) U/L ALT (16-63) U/L Alkaline Phosphatase (46-116) U/L Ammonia (11-32) umol/L Troponin I (0.000-0.056) ng/mL Total Protein (6.4-8.2) g/dL Albumin (3.4-5.0) g/dL Globulin Albumin/Globulin Ratio Amylase (25-115) U/L Urine Color Yellow (YELLOW) Urine Appearance Clear (CLEAR) Urine pH 5.5 (5.0-9.0) Ur Specific [place] 1.010 (1.005-1.030) Urine Protein Negative (NEGATIVE) Urine Glucose (UA) 500 H (NEGATIVE) Urine Ketones Negative (NEGATIVE) Urine Occult Blood Negative (NEGATIVE) Urine Nitrite Negative (NEGATIVE) Urine Bilirubin Negative (NEGATIVE) Urine Urobilinogen 0.2 (0.2-1.0) mg/dL Ur Leukocyte Esterase Negative (NEGATIVE) Salicylates < 2.8 L (2.8-20(Therapeutic)) mg/dL Urine Opiates Screen (NEGATIVE) Ur Oxycodone Screen (NEGATIVE) Urine Methadone Screen (NEGATIVE) Acetaminophen (10-30 (Therapeutic)) ug/mL Ur Barbiturates Screen (NEGATIVE) U Tricyclic Antidepress (NEGATIVE) Ur Phencyclidine Scrn (NEGATIVE) Ur Amphetamine Screen (NEGATIVE) U Methamphetamines Scrn (NEGATIVE) Urine MDMA Screen (NEGATIVE) U Benzodiazepines Scrn (NEGATIVE) Urine Cocaine Screen (NEGATIVE) U Marijuana (THC) Screen (NEGATIVE) Ethyl Alcohol (0) mg/dL SARS CoV-2 RNA Rapid BECKY (NEGATIVE) 07/28/20 07/28/20 Range/Units 19:38 20:20 WBC (5.0-10.0) 10^3/uL RBC (4.6-6.2) 10^6/uL Hgb (14.0-18.0) g/dL Hct (40.0-54.0) % MCV (80-100) fL MCH (27.0-34.0) pg MCHC (33.0-35.0) g/dL Plt Count (150-450) 10^3/uL Neut % (Auto) (42.2-75.2) % Lymph % (Auto) (20.5-50.1) % [place] % (Auto) (2-8) % Eos % (Auto) (1.0-3.0) % Baso % (Auto) (0.0-1.0) % PT (9.0-12.0) SEC INR (0.9-1.2) Sodium (136-145) mmol/L Potassium (3.5-5.1) mmol/L Chloride (98-107) mmol/L Carbon Dioxide (21-32) mmol/L Anion Gap (7-13) mEq/L BUN (7-18) mg/dL Creatinine (0.70-1.30) mg/dL Est Cr Clr Drug Dosing Estimated GFR (MDRD) BUN/Creatinine Ratio (No establ ref range) Glucose (74-99) mg/dL Calcium (8.5-10.1) mg/dL Magnesium (1.8-2.4) mg/dL Total Bilirubin (0.2-1.0) mg/dL AST (15-37) U/L ALT (16-63) U/L Alkaline Phosphatase (46-116) U/L Ammonia (11-32) umol/L Troponin I (0.000-0.056) ng/mL Total Protein (6.4-8.2) g/dL Albumin (3.4-5.0) g/dL Globulin Albumin/Globulin Ratio Amylase (25-115) U/L Urine Color (YELLOW) Urine Appearance (CLEAR) Urine pH (5.0-9.0) Ur Specific [place] (1.005-1.030) Urine Protein (NEGATIVE) Urine Glucose (UA) (NEGATIVE) Urine Ketones (NEGATIVE) Urine Occult Blood (NEGATIVE) Urine Nitrite (NEGATIVE) Urine Bilirubin (NEGATIVE) Urine Urobilinogen (0.2-1.0) mg/dL Ur Leukocyte Esterase (NEGATIVE) Salicylates (2.8-20(Therapeutic)) mg/dL Urine Opiates Screen Negative (NEGATIVE) Ur Oxycodone Screen Negative (NEGATIVE) Urine Methadone Screen Negative (NEGATIVE) Acetaminophen (10-30 (Therapeutic)) ug/mL Ur Barbiturates Screen Negative (NEGATIVE) U Tricyclic Antidepress Negative (NEGATIVE) Ur Phencyclidine Scrn Negative (NEGATIVE) Ur Amphetamine Screen Negative (NEGATIVE) U Methamphetamines Scrn Positive H (NEGATIVE) Urine MDMA Screen Negative (NEGATIVE) U Benzodiazepines Scrn Negative (NEGATIVE) Urine Cocaine Screen Negative (NEGATIVE) U Marijuana (THC) Screen Negative (NEGATIVE) Ethyl Alcohol (0) mg/dL SARS CoV-2 RNA Rapid BECKY Negative (NEGATIVE) Medications Generic Name Dose Route Start Last Admin Trade Name Freq PRN Reason Stop Dose Admin Dextrose/Water 50 ml 07/28/20 21:45 Dextrose 50% In Water IV ASDIRECTED PRN Hypoglycemia Glucagon 1 mg 07/28/20 21:45 Glucagen IM ASDIRECTED PRN Hypoglycemia Heparin Sodium (Porcine) 5,000 units 07/28/20 22:00 07/28/20 21:57 Heparin Sodium SUBCUT Not Given Q8HR [facility] Sodium Chloride 1,000 mls @ 125 mls/hr 07/28/20 21:15 07/28/20 21:37 Normal Saline IV 125 mls/hr ASDIRECTED GENNY Administration Acetylcysteine 10,000 mg/ 1,050 mls @ 65.625 mls/hr 07/29/20 03:30 Sodium Chloride IV 07/29/20 19:29 ONETIME ONE Insulin Human Lispro 0 unit 07/29/20 08:00 Humalog SUBCUT WITHMEALSANDBED [facility] Protocol Ondansetron HCl 4 mg 07/28/20 20:42 07/29/20 00:13 Zofran IVPUSH 4 mg Q4H PRN Administration Nausea/Vomiting Ondansetron HCl 4 mg 07/28/20 21:07 Zofran Odt PO Q4H PRN nausea, able to take PO Ondansetron HCl 4 mg 07/28/20 21:07 Zofran IVPUSH Q4H PRN Nausea/Vomiting Discontinued Medications Generic Name Dose Route Start Last Admin Trade Name Freq PRN Reason Stop Dose Admin Dextrose/Water 50 ml 07/28/20 19:55 Dextrose 50% In Water IV ASDIRECTED PRN Hypoglycemia Dextrose/Water 50 ml 07/28/20 21:13 Dextrose 50% In Water IV ASDIRECTED PRN Hypoglycemia Glucagon 1 mg 07/28/20 19:55 Glucagen IM ASDIRECTED PRN Hypoglycemia Glucagon 1 mg 07/28/20 21:13 Glucagen IM ASDIRECTED PRN Hypoglycemia Acetylcysteine 1,500 mg/ 207.5 mls @ 200 mls/hr 07/28/20 19:48 07/28/20 20:02 Dextrose/Water IV 07/28/20 20:47 200 mls/hr ONETIME ONE Administration Protocol Acetylcysteine 13,500 mg/ 267.5 mls @ 267.5 mls/hr 07/28/20 22:30 07/28/20 22:42 Dextrose/Water IV 07/28/20 23:29 267.5 mls/hr ONETIME ONE Administration Acetylcysteine 5,000 mg/ 525 mls @ 131.25 mls/hr 07/28/20 22:15 Dextrose/Water IV 07/29/20 02:14 ONETIME ONE Acetylcysteine 10,000 mg/ 1,050 mls @ 65.625 mls/hr 07/28/20 22:15 Sodium Chloride IV 07/29/20 14:14 ONETIME ONE Acetylcysteine 5,000 mg/ 525 mls @ 131.25 mls/hr 07/28/20 23:30 07/28/20 23:49 Dextrose/Water IV 07/29/20 03:29 131.25 mls/hr ONETIME ONE Administration Acetylcysteine Confirm 07/29/20 03:18 07/29/20 03:26 Acetadote 20% Administered 07/29/20 03:19 Not Given Dose 30 mls @ as directed .ROUTE .STK-MED ONE Insulin Human Lispro 10 unit 07/28/20 21:45 07/28/20 21:55 Humalog SUBCUT 07/28/20 21:46 10 unit ONETIME ONE Administration Insulin Human Regular 10 unit 07/28/20 19:55 07/28/20 20:01 Humulin R IV 07/28/20 19:56 10 unit ONETIME ONE Administration Lorazepam 0.5 mg 07/29/20 00:32 07/29/20 00:46 Ativan PO 07/29/20 00:33 0.5 mg ONETIME ONE Administration Re-Assessment/Re-Exam: Dozing, intermittent arousal at bedside to void. Thus far has been cooperative with staff. Tylenol level is elevated, LFT's previously wnl , tonight elevated. [place] no beds available, [facility] no beds available, [place] no bed available, may have bed tomorrow. Dr Malave recommendation to transfer to higher care, due to lack of available bed, will admit patient will need 1:1 observation. Departure - Departure Time of Disposition: 20:35 Disposition: Home, Self-Care 01 Condition: Good Clinical Impression: Methamphetamine abuse Acetaminophen overdose Qualifiers: Encounter type: initial encounter Injury intent: intentional self-harm Qualified Code(s): T39.1X2A - Poisoning by 4-Aminophenol derivatives, intentional self-harm, initial encounter - Discharge Information *PRESCRIPTION DRUG MONITORING PROGRAM REVIEWED*: No *COPY OF PRESCRIPTION DRUG MONITORING REPORT IN PATIENT [place]: No Sepsis Event Note (ED) - Evaluation Sepsis Screening Result: No Definite Risk - Focused Exam Vital Signs: Vital Signs Temp Pulse Resp BP Pulse Ox 07/28/20 18:58 98 F 98 18 106/66 100 - My Orders Last 24 Hours: My Active Orders 07/28/20 20:24 Admission Diagnosis [ADT] Stat Admission Status [Patient Status] [ADT] Routine Cardiac Monitoring [RC] . DIRECTED - Assessment/Plan Last 24 Hours: My Active Orders 07/28/20 20:24 Admission Diagnosis [ADT] Stat Admission Status [Patient Status] [ADT] Routine Cardiac Monitoring [RC] . DIRECTED
[2020-07-28 19:39] LABS: ACETAMINOPHEN 368 ug/mL (10-30 (Therapeutic))
[2020-07-28] MEDS ORDERED: ACETYLCYSTEINE IV ONE ×3 (19:48→22:15)
[2020-07-28] MEDS ORDERED: DEXTROSE 5% IV ONE ×2 (19:48)
[2020-07-28] MEDS ORDERED: WATER IV ONE ×2 (19:48)
[2020-07-28] MEDS ORDERED: 50% Dextrose in Water 50 ML Syringe IV PRN ×3 (19:55→21:45)
[2020-07-28] MEDS ORDERED: Glucagon,Human Recombinant 1 MG Vial IM PRN ×3 (19:55→21:45)
[2020-07-28] MEDS ORDERED: Insulin Regular, Human 100 Units/ML 3 ML Vial IV ONE (19:55)
[2020-07-28] MEDS: Ondansetron 4 MG/2 ML SDV IVPUSH PRN (20:46)
[2020-07-28] MEDS ORDERED: Ondansetron 4 MG/2 ML SDV IVPUSH PRN (21:07)
[2020-07-28] MEDS ORDERED: Ondansetron 4 MG Tab.DIS PO PRN (21:07)
--- NOTE | 2020-07-28 21:16 | PCM.HP ---
H&P History of Present Illness - General Date of Service: 07/28/20 Admit Problem/Dx: Admission Diagnosis/Problem Admission Diagnosis/Problem Acetaminophen overdose Source of Information: Patient History Limitations: Reports: No Limitations - History of Present Illness Initial Comments - Free Text/Narative: Patient is a 34-year-old male with a medical history of diabetes who presented after ingesting unknown but excess amount of Tylenol in a suicide attempt. History difficult to obtain as patient is somewhat uncooperative. Patient took 4 handfuls of Tylenol at 1 PM this afternoon in a suicide attempt. She reports recent stressors. He denies prior history of suicide attempt. He currently has no physical complaints. Patient was brought in by the detail maker and fitter. Labs showed sodium of 129, anion gap of 17.8, glucose of 597, AST of 109, ALT of 260, Tylenol level of 398, U tox positive for methamphetamine and Tylenol. Urine negative for ketones. Patient was started on N-acetylcysteine in the ER. - Related Data Allergies/Adverse Reactions: Allergies Allergy/AdvReac Type Severity Reaction Status Date / Time lactose AdvReac Nausea and Verified 07/28/20 20:58 Vomiting Home Medications: Home Meds metFORMIN [Glucophage] tab PO 06/24/20 [History] Past Medical History - Past Health History Medical/Surgical History: Denies Medical/Surgical History HEENT History: Reports: Impaired Vision Other HEENT History: wears contacts Cardiovascular History: Reports: Cardiomyopathy Respiratory History: Reports: None Gastrointestinal History: Reports: None Genitourinary History: Reports: None Musculoskeletal History: Reports: Arthritis, Back Pain, Chronic, Other (See Below) Other Musculoskeletal History: degenerative disk , bone spurs to back Neurological History: Reports: Migraines Psychiatric History: Reports: Addiction, Depression Endocrine/Metabolic History: Reports: Diabetes, Type II Hematologic History: Reports: None Immunologic History: Reports: None Oncologic (Cancer) History: Reports: None Dermatologic History: Reports: None - Infectious Disease History Infectious Disease History: Reports: None - Past Surgical History HEENT Surgical History: Reports: None Cardiovascular Surgical History: Reports: None Respiratory Surgical History: Reports: None GI Surgical History: Reports: None Neurological Surgical History: Reports: None Musculoskeletal Surgical History: Reports: Other (See Below) Other Musculoskeletal Surgeries/Procedures:: surgery on right hand Social & Family History - Family History Family Medical History: No Pertinent Family History - Caffeine Use Caffeine Use: Reports: None - Living Situation & Occupation Living situation: Reports: with Family Occupation: Employed H&P Review of Systems - Review of Systems: Review Of Systems: See Below General: Reports: No Symptoms HEENT: Reports: No Symptoms Pulmonary: Reports: No Symptoms Cardiovascular: Reports: No Symptoms Gastrointestinal: Reports: No Symptoms Genitourinary: Reports: No Symptoms Musculoskeletal: Reports: No Symptoms Skin: Reports: No Symptoms Psychiatric: Reports: Depression, Suicidal Ideation Neurological: Reports: No Symptoms Hematologic/Lymphatic: Reports: No Symptoms Immunologic: Reports: No Symptoms Exam - Exam Exam: See Below - Vital Signs Vital Signs: Last Vital Signs Temp 97.9 F 07/28/20 20:39 Pulse 88 07/28/20 20:39 Resp 18 07/28/20 20:39 BP 129/87 07/28/20 20:39 Pulse Ox 99 07/28/20 20:39 Weight: 227 lb - Exam General: Alert, Oriented, 4 HEENT: PERRLA, Hearing Intact, Mucosa Moist & [place], Nares Patent, Normal Nasal Septum, Posterior Pharynx Clear, Conjunctiva Clear, EOMI, EACs Clear, TMs Clear Neck: Supple, Trachea Midline, 2 Lungs: Clear to Auscultation, Normal Respiratory Effort Cardiovascular: Regular Rate, Regular Rhythm GI/Abdominal Exam: Normal Bowel Sounds, Soft, Non-Tender, No Organomegaly, No Distention, No Abnormal Bruit, No Mass, Pelvis Stable Back Exam: Normal Inspection, Full Range of Motion, NT Extremities: Normal Inspection, Normal Range of Motion, Non-Tender, No Pedal Ed kelle, Normal Capillary Refill Skin: Warm, Dry, Intact Neurological: Cranial Nerves Intact, Reflexes Equal Bilateral Neuro Extensive - Mental Status: Alert, Oriented x3, Normal Mood/Affect, Normal Cognition Neuro Extensive - Motor, Sensory, Reflexes: CN II-XII Intact, Normal Gait, Normal Reflexes Psychiatric: Depressed - Patient Data Lab Results Last 24 hrs: Laboratory Results - last 24 hr 07/28/20 07/28/20 07/28/20 Range/Units 18:49 18:49 18:49 WBC 7.4 (5.0-10.0) 10^3/uL RBC 5.31 (4.6-6.2) 10^6/uL Hgb 16.8 D (14.0-18.0) g/dL Hct 47.0 (40.0-54.0) % MCV 88.5 D (80-100) fL MCH 31.6 (27.0-34.0) pg MCHC 35.7 H (33.0-35.0) g/dL Plt Count 240 (150-450) 10^3/uL Neut % (Auto) 55.0 (42.2-75.2) % Lymph % (Auto) 33.0 (20.5-50.1) % [place] % (Auto) 9.6 H (2-8) % Eos % (Auto) 1.9 (1.0-3.0) % Baso % (Auto) 0.5 (0.0-1.0) % Sodium 129 L (136-145) mmol/L Potassium 4.8 (3.5-5.1) mmol/L Chloride 95 L (98-107) mmol/L Carbon Dioxide 21 (21-32) mmol/L Anion Gap 17.8 H (7-13) mEq/L BUN 22 H (7-18) mg/dL Creatinine 0.95 (0.70-1.30) mg/dL Est Cr Clr Drug Dosing TNP Estimated GFR (MDRD) > 60 BUN/Creatinine Ratio 23.2 (No establ ref range) Glucose 597 H* (74-99) mg/dL POC Glucose (70-105) mg/dl Calcium 8.9 (8.5-10.1) mg/dL Magnesium 2.0 (1.8-2.4) mg/dL Total Bilirubin 0.4 (0.2-1.0) mg/dL AST 109 H (15-37) U/L ALT 260 H (16-63) U/L Alkaline Phosphatase 115 (46-116) U/L Ammonia 19 (11-32) umol/L Troponin I < 0.017 (0.000-0.056) ng/mL Total Protein 8.4 H (6.4-8.2) g/dL Albumin 3.2 L (3.4-5.0) g/dL Globulin 5.2 Albumin/Globulin Ratio 0.62 Amylase 36 (25-115) U/L Urine Color (YELLOW) Urine Appearance (CLEAR) Urine pH (5.0-9.0) Ur Specific [place] (1.005-1.030) Urine Protein (NEGATIVE) Urine Glucose (UA) (NEGATIVE) Urine Ketones (NEGATIVE) Urine Occult Blood (NEGATIVE) Urine Nitrite (NEGATIVE) Urine Bilirubin (NEGATIVE) Urine Urobilinogen (0.2-1.0) mg/dL Ur Leukocyte Esterase (NEGATIVE) Salicylates (2.8-20(Therapeutic)) mg/dL Urine Opiates Screen (NEGATIVE) Ur Oxycodone Screen (NEGATIVE) Urine Methadone Screen (NEGATIVE) Acetaminophen 368 H* (10-30 (Therapeutic)) ug/mL Ur Barbiturates Screen (NEGATIVE) U Tricyclic Antidepress (NEGATIVE) Ur Phencyclidine Scrn (NEGATIVE) Ur Amphetamine Screen (NEGATIVE) U Methamphetamines Scrn (NEGATIVE) Urine MDMA Screen (NEGATIVE) U Benzodiazepines Scrn (NEGATIVE) Urine Cocaine Screen (NEGATIVE) U Marijuana (THC) Screen (NEGATIVE) Ethyl Alcohol < 3 (0) mg/dL SARS CoV-2 RNA Rapid BECKY (NEGATIVE) 07/28/20 07/28/20 07/28/20 Range/Units 18:49 19:38 19:38 WBC (5.0-10.0) 10^3/uL RBC (4.6-6.2) 10^6/uL Hgb (14.0-18.0) g/dL Hct (40.0-54.0) % MCV (80-100) fL MCH (27.0-34.0) pg MCHC (33.0-35.0) g/dL Plt Count (150-450) 10^3/uL Neut % (Auto) (42.2-75.2) % Lymph % (Auto) (20.5-50.1) % [place] % (Auto) (2-8) % Eos % (Auto) (1.0-3.0) % Baso % (Auto) (0.0-1.0) % Sodium (136-145) mmol/L Potassium (3.5-5.1) mmol/L Chloride (98-107) mmol/L Carbon Dioxide (21-32) mmol/L Anion Gap (7-13) mEq/L BUN (7-18) mg/dL Creatinine (0.70-1.30) mg/dL Est Cr Clr Drug Dosing Estimated GFR (MDRD) BUN/Creatinine Ratio (No establ ref range) Glucose (74-99) mg/dL POC Glucose (70-105) mg/dl Calcium (8.5-10.1) mg/dL Magnesium (1.8-2.4) mg/dL Total Bilirubin (0.2-1.0) mg/dL AST (15-37) U/L ALT (16-63) U/L Alkaline Phosphatase (46-116) U/L Ammonia (11-32) umol/L Troponin I (0.000-0.056) ng/mL Total Protein (6.4-8.2) g/dL Albumin (3.4-5.0) g/dL Globulin Albumin/Globulin Ratio Amylase (25-115) U/L Urine Color Yellow (YELLOW) Urine Appearance Clear (CLEAR) Urine pH 5.5 (5.0-9.0) Ur Specific [place] 1.010 (1.005-1.030) Urine Protein Negative (NEGATIVE) Urine Glucose (UA) 500 H (NEGATIVE) Urine Ketones Negative (NEGATIVE) Urine Occult Blood Negative (NEGATIVE) Urine Nitrite Negative (NEGATIVE) Urine Bilirubin Negative (NEGATIVE) Urine Urobilinogen 0.2 (0.2-1.0) mg/dL Ur Leukocyte Esterase Negative (NEGATIVE) Salicylates < 2.8 L (2.8-20(Therapeutic)) mg/dL Urine Opiates Screen Negative (NEGATIVE) Ur Oxycodone Screen Negative (NEGATIVE) Urine Methadone Screen Negative (NEGATIVE) Acetaminophen (10-30 (Therapeutic)) ug/mL Ur Barbiturates Screen Negative (NEGATIVE) U Tricyclic Antidepress Negative (NEGATIVE) Ur Phencyclidine Scrn Negative (NEGATIVE) Ur Amphetamine Screen Negative (NEGATIVE) U Methamphetamines Scrn Positive H (NEGATIVE) Urine MDMA Screen Negative (NEGATIVE) U Benzodiazepines Scrn Negative (NEGATIVE) Urine Cocaine Screen Negative (NEGATIVE) U Marijuana (THC) Screen Negative (NEGATIVE) Ethyl Alcohol (0) mg/dL SARS CoV-2 RNA Rapid BECKY (NEGATIVE) 07/28/20 07/28/20 Range/Units 20:20 20:38 WBC (5.0-10.0) 10^3/uL RBC (4.6-6.2) 10^6/uL Hgb (14.0-18.0) g/dL Hct (40.0-54.0) % MCV (80-100) fL MCH (27.0-34.0) pg MCHC (33.0-35.0) g/dL Plt Count (150-450) 10^3/uL Neut % (Auto) (42.2-75.2) % Lymph % (Auto) (20.5-50.1) % [place] % (Auto) (2-8) % Eos % (Auto) (1.0-3.0) % Baso % (Auto) (0.0-1.0) % Sodium (136-145) mmol/L Potassium (3.5-5.1) mmol/L Chloride (98-107) mmol/L Carbon Dioxide (21-32) mmol/L Anion Gap (7-13) mEq/L BUN (7-18) mg/dL Creatinine (0.70-1.30) mg/dL Est Cr Clr Drug Dosing Estimated GFR (MDRD) BUN/Creatinine Ratio (No establ ref range) Glucose (74-99) mg/dL POC Glucose 396 H (70-105) mg/dl Calcium (8.5-10.1) mg/dL Magnesium (1.8-2.4) mg/dL Total Bilirubin (0.2-1.0) mg/dL AST (15-37) U/L ALT (16-63) U/L Alkaline Phosphatase (46-116) U/L Ammonia (11-32) umol/L Troponin I (0.000-0.056) ng/mL Total Protein (6.4-8.2) g/dL Albumin (3.4-5.0) g/dL Globulin Albumin/Globulin Ratio Amylase (25-115) U/L Urine Color (YELLOW) Urine Appearance (CLEAR) Urine pH (5.0-9.0) Ur Specific [place] (1.005-1.030) Urine Protein (NEGATIVE) Urine Glucose (UA) (NEGATIVE) Urine Ketones (NEGATIVE) Urine Occult Blood (NEGATIVE) Urine Nitrite (NEGATIVE) Urine Bilirubin (NEGATIVE) Urine Urobilinogen (0.2-1.0) mg/dL Ur Leukocyte Esterase (NEGATIVE) Salicylates (2.8-20(Therapeutic)) mg/dL Urine Opiates Screen (NEGATIVE) Ur Oxycodone Screen (NEGATIVE) Urine Methadone Screen (NEGATIVE) Acetaminophen (10-30 (Therapeutic)) ug/mL Ur Barbiturates Screen (NEGATIVE) U Tricyclic Antidepress (NEGATIVE) Ur Phencyclidine Scrn (NEGATIVE) Ur Amphetamine Screen (NEGATIVE) U Methamphetamines Scrn (NEGATIVE) Urine MDMA Screen (NEGATIVE) U Benzodiazepines Scrn (NEGATIVE) Urine Cocaine Screen (NEGATIVE) U Marijuana (THC) Screen (NEGATIVE) Ethyl Alcohol (0) mg/dL SARS CoV-2 RNA Rapid BECKY Negative (NEGATIVE) Result Diagrams: 07/28/20 18:49 07/28/20 18:49 Problem List Initiated/Reviewed/Updated: Yes Orders Last 24hrs: Active Orders 24 hr Category Date Time Status Admission Diagnosis [ADT] Stat ADT 07/28/20 20:24 Ordered Admission Status [Patient Status] [ADT] Routine ADT 07/28/20 20:24 Active Blood Glucose Check, Bedside [RC] ONETIME Care 07/28/20 19:55 Active Cardiac Monitoring [RC] . DIRECTED Care 07/28/20 20:24 Active Cardiac Monitoring [RC] CONTINUOUS Care 07/28/20 21:07 Ordered Oxygen Therapy [RC] PRN Care 07/28/20 21:07 Ordered Up ad [place] [RC] ASDIRECTED Care 07/28/20 21:07 Ordered VTE/DVT Education [RC] PER UNIT ROUTINE Care 07/28/20 21:07 Ordered Vital Signs [RC] Q4H Care 07/28/20 21:07 Ordered Consistent Carbohydrate Diet [DIET] Diet 07/28/20 Dinner Ordered ACETAMINOPHEN [CHEM] Q4H Lab 07/28/20 21:14 Ordered ACETAMINOPHEN [CHEM] Q4H Lab 07/29/20 01:14 Ordered ACETAMINOPHEN [CHEM] Q4H Lab 07/29/20 05:14 Ordered CBC W/O DIFF,HEMOGRAM [HEME] AM Lab 07/29/20 05:11 Ordered HEPATIC FUNCTION PANEL,HFP [CHEM] Q4H Lab 07/28/20 21:07 Ordered HEPATIC FUNCTION PANEL,HFP [CHEM] Q4H Lab 07/29/20 01:07 Ordered HEPATIC FUNCTION PANEL,HFP [CHEM] Q4H Lab 07/29/20 05:07 Ordered HEPATIC FUNCTION PANEL,HFP [CHEM] Q4H Lab 07/29/20 09:07 Ordered INR,PT,PROTHROMBIN TIME [COAG] AM Lab 07/29/20 05:11 Ordered INR,PT,PROTHROMBIN TIME [COAG] Routine Lab 07/28/20 21:07 Ordered Dextrose 50% in Water Med 07/28/20 19:55 Active 50 ml IV ASDIRECTED PRN Dextrose 50% in Water Med 07/28/20 21:13 Ordered 50 ml IV ASDIRECTED PRN Glucagon,Human Recombinant [GlucaGen] Med 07/28/20 19:55 Active 1 mg IM ASDIRECTED PRN Glucagon,Human Recombinant [GlucaGen] Med 07/28/20 21:13 Ordered 1 mg IM ASDIRECTED PRN Heparin Sodium Med 07/28/20 22:00 Ordered 5,000 units SUBCUT Q8HR Insulin Lispro [HumaLOG] Med 07/29/20 08:00 Ordered See Protocol SUBCUT WITHMEALSANDBED Ondansetron [Zofran ODT] Med 07/28/20 21:07 Ordered 4 mg PO Q4H PRN Ondansetron [Zofran] Med 07/28/20 20:42 Active 4 mg IVPUSH Q4H PRN Ondansetron [Zofran] Med 07/28/20 21:07 Ordered 4 mg IVPUSH Q4H PRN Pharm to Dose - Acetylcysteine [Pharmacy to Dose - Med 07/28/20 21:15 Ordered Acetylcysteine] 1 dose .XX ASDIRECTED Sodium Chloride 0.9% @ 125 MLS/HR (1000ml) Med 07/28/20 21:15 Ordered Sodium Chloride 0.9% [Normal Saline] 1,000 ml IV ASDIRECTED Resuscitation Status Routine Resus Stat 07/28/20 21:07 Ordered Medication Orders Acetylcysteine (Pharmacy To Dose - Acetylcysteine) 1 dose .XX ASDIRECTED GENNY Dextrose/Water (Dextrose 50% In Water) 50 ml IV ASDIRECTED PRN PRN Reason: Hypoglycemia Dextrose/Water (Dextrose 50% In Water) 50 ml IV ASDIRECTED PRN PRN Reason: Hypoglycemia Glucagon (Glucagen) 1 mg IM ASDIRECTED PRN PRN Reason: Hypoglycemia Glucagon (Glucagen) 1 mg IM ASDIRECTED PRN PRN Reason: Hypoglycemia Heparin Sodium (Porcine) (Heparin Sodium) 5,000 units SUBCUT Q8HR GENNY Sodium Chloride (Normal Saline) 1,000 mls @ 125 mls/hr IV ASDIRECTED GENNY Insulin Human Lispro (Humalog) 0 unit SUBCUT WITHMEALSANDBED GENNY; Protocol Ondansetron HCl (Zofran) 4 mg IVPUSH Q4H PRN PRN Reason: Nausea/Vomiting Last Admin: 07/28/20 20:46 Dose: 4 mg Documented by: DERRICK Ondansetron HCl (Zofran Odt) 4 mg PO Q4H PRN PRN Reason: nausea, able to take PO Ondansetron HCl (Zofran) 4 mg IVPUSH Q4H PRN PRN Reason: Nausea/Vomiting Assessment/Plan Comment:: Patient is a 34-year-old male with a medical history of diabetes who presented after ingesting unknown but excess amount of Tylenol in a suicide attempt. He was found to have elevated Tylenol level of 398 with U tox positive for methamphetamines. He also had hyponatremia of 129, anion gap of 17.8, elevated transaminases and hyperglycemia of 597. Acute acetaminophen overdose Drug induced liver injury Continue N-acetylcysteine Every 4 hourly hepatic function test and acetaminophen levels Check INR and ammonia levels Attempted to transfer patient but no beds available at [facility] at the moment Suicidal attempt Suicide precautions Transfer to higher acuity hospital for psychiatric care soon as bed available Hyperglycemia Type 2 diabetes mellitus Glucose of 597 on presentation Hold Metformin Sliding scale insulin Anion gap diabetic acidosis Likely due to lactic acidosis due to liver injury Repeat in a.m. Hyponatremia Sodium of 129 is likely due to hypoglycemia Trend sodium Methamphetamine abuse Counseled on cessation DVT prophylaxis: Heparin CODE STATUS: Full code
[2020-07-28] MEDS: Sodium Chloride 0.9% 1,000 ML IV SCH (21:37)
[2020-07-28] MEDS ORDERED: Insulin Lispro 100 Units/ML 3 ML Vial SUBCUT ONE (21:45)
[2020-07-28] MEDS: Heparin Sodium 5,000 Units/ML Vial SUBCUT SCH (21:57)
[2020-07-28] MEDS ORDERED: Acetylcysteine 5,000 MG in Dextrose 5% in Water 500 ML IV ONE ×4 (22:15→23:30)
[2020-07-28] MEDS ORDERED: SODIUM CHLORIDE 0.45% IV ONE (22:15)
[2020-07-29] MEDS: Ondansetron 4 MG/2 ML SDV IVPUSH PRN (00:13)
[2020-07-29] MEDS ORDERED: LORazepam 0.5 MG Tab PO ONE (00:32)
[2020-07-29] MEDS ORDERED: Acetylcysteine 30 ML ONE (03:18)
[2020-07-29] MEDS ORDERED: ACETYLCYSTEINE IV ONE (03:30)
[2020-07-29] MEDS ORDERED: SODIUM CHLORIDE 0.45% IV ONE (03:30)
[2020-07-29] MEDS: Heparin Sodium 5,000 Units/ML Vial SUBCUT SCH ×3 (05:31→21:56)
[2020-07-29 07:46] LABS: ANION GAP 16.9 mEq/L (7-13); CHLORIDE,CL 100 mmol/L (98-107); SODIUM,NA 133 mmol/L (136-145)
[2020-07-29] MEDS: Insulin Lispro 100 Units/ML 3 ML Vial SUBCUT SCH ×4 (08:47→21:00)
[2020-07-29] MEDS: Sodium Chloride 0.9% 1,000 ML IV SCH ×2 (10:58→19:53)
--- NOTE | 2020-07-29 19:14 | PCM.PN ---
- General Info Date of Service: 07/29/20 Admission Dx/Problem (Free Text): Admission Diagnosis/Problem Admission Diagnosis/Problem Acetaminophen overdose Subjective Update: Patient seen and examined today. Complains of generalized weakness. Afebrile overnight. Functional Status: Reports: Pain Controlled - Review of Systems General: Reports: Weakness HEENT: Reports: No Symptoms Pulmonary: Reports: No Symptoms Cardiovascular: Reports: No Symptoms Gastrointestinal: Reports: No Symptoms Genitourinary: Reports: No Symptoms Musculoskeletal: Reports: No Symptoms Skin: Reports: No Symptoms Neurological: Reports: No Symptoms Psychiatric: Reports: Depression - Patient Data Vitals - Most Recent: Last Vital Signs Temp 95.6 F L 07/29/20 16:00 Pulse 100 07/29/20 16:00 Resp 16 07/29/20 16:00 BP 155/101 H 07/29/20 16:00 Pulse Ox 100 07/29/20 16:00 Weight - Most Recent: 227 lb I&O - Last 24 Hours: Intake & Output 07/29/20 07/29/20 07/29/20 06:59 14:59 22:59 Intake Total 1300 480 400 Balance 1300 480 400 Lab Results Last 24 Hours: Laboratory Results - last 24 hr 07/28/20 07/28/20 07/28/20 Range/Units 18:49 18:49 18:49 WBC (5.0-10.0) 10^3/uL RBC (4.6-6.2) 10^6/uL Hgb (14.0-18.0) g/dL Hct (40.0-54.0) % MCV (80-100) fL MCH (27.0-34.0) pg MCHC (33.0-35.0) g/dL Plt Count (150-450) 10^3/uL PT (9.0-12.0) SEC INR (0.9-1.2) Sodium 129 L (136-145) mmol/L Potassium 4.8 (3.5-5.1) mmol/L Chloride 95 L (98-107) mmol/L Carbon Dioxide 21 (21-32) mmol/L Anion Gap 17.8 H (7-13) mEq/L BUN 22 H (7-18) mg/dL Creatinine 0.95 (0.70-1.30) mg/dL Est Cr Clr Drug Dosing TNP Estimated GFR (MDRD) > 60 BUN/Creatinine Ratio 23.2 (No establ ref range) Glucose 597 H* (74-99) mg/dL POC Glucose (70-105) mg/dl Calcium 8.9 (8.5-10.1) mg/dL Magnesium 2.0 (1.8-2.4) mg/dL Total Bilirubin 0.4 (0.2-1.0) mg/dL Direct Bilirubin (0.0-0.2) mg/dL Indirect Bilirubin AST 109 H (15-37) U/L ALT 260 H (16-63) U/L Alkaline Phosphatase 115 (46-116) U/L Ammonia 19 (11-32) umol/L Troponin I < 0.017 (0.000-0.056) ng/mL Total Protein 8.4 H (6.4-8.2) g/dL Albumin 3.2 L (3.4-5.0) g/dL Globulin 5.2 Albumin/Globulin Ratio 0.62 Amylase 36 (25-115) U/L Urine Color (YELLOW) Urine Appearance (CLEAR) Urine pH (5.0-9.0) Ur Specific [place] (1.005-1.030) Urine Protein (NEGATIVE) Urine Glucose (UA) (NEGATIVE) Urine Ketones (NEGATIVE) Urine Occult Blood (NEGATIVE) Urine Nitrite (NEGATIVE) Urine Bilirubin (NEGATIVE) Urine Urobilinogen (0.2-1.0) mg/dL Ur Leukocyte Esterase (NEGATIVE) Salicylates < 2.8 L (2.8-20(Therapeutic)) mg/dL Urine Opiates Screen (NEGATIVE) Ur Oxycodone Screen (NEGATIVE) Urine Methadone Screen (NEGATIVE) Acetaminophen 368 H* (10-30 (Therapeutic)) ug/mL Ur Barbiturates Screen (NEGATIVE) U Tricyclic Antidepress (NEGATIVE) Ur Phencyclidine Scrn (NEGATIVE) Ur Amphetamine Screen (NEGATIVE) U Methamphetamines Scrn (NEGATIVE) Urine MDMA Screen (NEGATIVE) U Benzodiazepines Scrn (NEGATIVE) Urine Cocaine Screen (NEGATIVE) U Marijuana (THC) Screen (NEGATIVE) Ethyl Alcohol < 3 (0) mg/dL SARS CoV-2 RNA Rapid BECKY (NEGATIVE) 07/28/20 07/28/20 07/28/20 Range/Units 18:49 19:38 19:38 WBC (5.0-10.0) 10^3/uL RBC (4.6-6.2) 10^6/uL Hgb (14.0-18.0) g/dL Hct (40.0-54.0) % MCV (80-100) fL MCH (27.0-34.0) pg MCHC (33.0-35.0) g/dL Plt Count (150-450) 10^3/uL PT 9.7 (9.0-12.0) SEC INR 1.0 (0.9-1.2) Sodium (136-145) mmol/L Potassium (3.5-5.1) mmol/L Chloride (98-107) mmol/L Carbon Dioxide (21-32) mmol/L Anion Gap (7-13) mEq/L BUN (7-18) mg/dL Creatinine (0.70-1.30) mg/dL Est Cr Clr Drug Dosing Estimated GFR (MDRD) BUN/Creatinine Ratio (No establ ref range) Glucose (74-99) mg/dL POC Glucose (70-105) mg/dl Calcium (8.5-10.1) mg/dL Magnesium (1.8-2.4) mg/dL Total Bilirubin (0.2-1.0) mg/dL Direct Bilirubin (0.0-0.2) mg/dL Indirect Bilirubin AST (15-37) U/L ALT (16-63) U/L Alkaline Phosphatase (46-116) U/L Ammonia (11-32) umol/L Troponin I (0.000-0.056) ng/mL Total Protein (6.4-8.2) g/dL Albumin (3.4-5.0) g/dL Globulin Albumin/Globulin Ratio Amylase (25-115) U/L Urine Color Yellow (YELLOW) Urine Appearance Clear (CLEAR) Urine pH 5.5 (5.0-9.0) Ur Specific [place] 1.010 (1.005-1.030) Urine Protein Negative (NEGATIVE) Urine Glucose (UA) 500 H (NEGATIVE) Urine Ketones Negative (NEGATIVE) Urine Occult Blood Negative (NEGATIVE) Urine Nitrite Negative (NEGATIVE) Urine Bilirubin Negative (NEGATIVE) Urine Urobilinogen 0.2 (0.2-1.0) mg/dL Ur Leukocyte Esterase Negative (NEGATIVE) Salicylates (2.8-20(Therapeutic)) mg/dL Urine Opiates Screen Negative (NEGATIVE) Ur Oxycodone Screen Negative (NEGATIVE) Urine Methadone Screen Negative (NEGATIVE) Acetaminophen (10-30 (Therapeutic)) ug/mL Ur Barbiturates Screen Negative (NEGATIVE) U Tricyclic Antidepress Negative (NEGATIVE) Ur Phencyclidine Scrn Negative (NEGATIVE) Ur Amphetamine Screen Negative (NEGATIVE) U Methamphetamines Scrn Positive H (NEGATIVE) Urine MDMA Screen Negative (NEGATIVE) U Benzodiazepines Scrn Negative (NEGATIVE) Urine Cocaine Screen Negative (NEGATIVE) U Marijuana (THC) Screen Negative (NEGATIVE) Ethyl Alcohol (0) mg/dL SARS CoV-2 RNA Rapid BECKY (NEGATIVE) 07/28/20 07/28/20 07/28/20 Range/Units 20:20 20:38 21:41 WBC (5.0-10.0) 10^3/uL RBC (4.6-6.2) 10^6/uL Hgb (14.0-18.0) g/dL Hct (40.0-54.0) % MCV (80-100) fL MCH (27.0-34.0) pg MCHC (33.0-35.0) g/dL Plt Count (150-450) 10^3/uL PT (9.0-12.0) SEC INR (0.9-1.2) Sodium (136-145) mmol/L Potassium (3.5-5.1) mmol/L Chloride (98-107) mmol/L Carbon Dioxide (21-32) mmol/L Anion Gap (7-13) mEq/L BUN (7-18) mg/dL Creatinine (0.70-1.30) mg/dL Est Cr Clr Drug Dosing Estimated GFR (MDRD) BUN/Creatinine Ratio (No establ ref range) Glucose (74-99) mg/dL POC Glucose 396 H 404 H* (70-105) mg/dl Calcium (8.5-10.1) mg/dL Magnesium (1.8-2.4) mg/dL Total Bilirubin (0.2-1.0) mg/dL Direct Bilirubin (0.0-0.2) mg/dL Indirect Bilirubin AST (15-37) U/L ALT (16-63) U/L Alkaline Phosphatase (46-116) U/L Ammonia (11-32) umol/L Troponin I (0.000-0.056) ng/mL Total Protein (6.4-8.2) g/dL Albumin (3.4-5.0) g/dL Globulin Albumin/Globulin Ratio Amylase (25-115) U/L Urine Color (YELLOW) Urine Appearance (CLEAR) Urine pH (5.0-9.0) Ur Specific [place] (1.005-1.030) Urine Protein (NEGATIVE) Urine Glucose (UA) (NEGATIVE) Urine Ketones (NEGATIVE) Urine Occult Blood (NEGATIVE) Urine Nitrite (NEGATIVE) Urine Bilirubin (NEGATIVE) Urine Urobilinogen (0.2-1.0) mg/dL Ur Leukocyte Esterase (NEGATIVE) Salicylates (2.8-20(Therapeutic)) mg/dL Urine Opiates Screen (NEGATIVE) Ur Oxycodone Screen (NEGATIVE) Urine Methadone Screen (NEGATIVE) Acetaminophen (10-30 (Therapeutic)) ug/mL Ur Barbiturates Screen (NEGATIVE) U Tricyclic Antidepress (NEGATIVE) Ur Phencyclidine Scrn (NEGATIVE) Ur Amphetamine Screen (NEGATIVE) U Methamphetamines Scrn (NEGATIVE) Urine MDMA Screen (NEGATIVE) U Benzodiazepines Scrn (NEGATIVE) Urine Cocaine Screen (NEGATIVE) U Marijuana (THC) Screen (NEGATIVE) Ethyl Alcohol (0) mg/dL SARS CoV-2 RNA Rapid BECKY Negative (NEGATIVE) 07/28/20 07/28/20 07/28/20 Range/Units 23:13 23:13 23:13 WBC (5.0-10.0) 10^3/uL RBC (4.6-6.2) 10^6/uL Hgb (14.0-18.0) g/dL Hct (40.0-54.0) % MCV (80-100) fL MCH (27.0-34.0) pg MCHC (33.0-35.0) g/dL Plt Count (150-450) 10^3/uL PT (9.0-12.0) SEC INR (0.9-1.2) Sodium (136-145) mmol/L Potassium (3.5-5.1) mmol/L Chloride (98-107) mmol/L Carbon Dioxide (21-32) mmol/L Anion Gap (7-13) mEq/L BUN (7-18) mg/dL Creatinine (0.70-1.30) mg/dL Est Cr Clr Drug Dosing Estimated GFR (MDRD) BUN/Creatinine Ratio (No establ ref range) Glucose (74-99) mg/dL POC Glucose (70-105) mg/dl Calcium (8.5-10.1) mg/dL Magnesium (1.8-2.4) mg/dL Total Bilirubin 0.5 (0.2-1.0) mg/dL Direct Bilirubin 0.2 (0.0-0.2) mg/dL Indirect Bilirubin 0.3 AST 124 H (15-37) U/L ALT 263 H (16-63) U/L Alkaline Phosphatase 110 (46-116) U/L Ammonia < 10 L (11-32) umol/L Troponin I (0.000-0.056) ng/mL Total Protein 7.8 (6.4-8.2) g/dL Albumin 2.9 L (3.4-5.0) g/dL Globulin 4.9 Albumin/Globulin Ratio 0.59 Amylase (25-115) U/L Urine Color (YELLOW) Urine Appearance (CLEAR) Urine pH (5.0-9.0) Ur Specific [place] (1.005-1.030) Urine Protein (NEGATIVE) Urine Glucose (UA) (NEGATIVE) Urine Ketones (NEGATIVE) Urine Occult Blood (NEGATIVE) Urine Nitrite (NEGATIVE) Urine Bilirubin (NEGATIVE) Urine Urobilinogen (0.2-1.0) mg/dL Ur Leukocyte Esterase (NEGATIVE) Salicylates (2.8-20(Therapeutic)) mg/dL Urine Opiates Screen (NEGATIVE) Ur Oxycodone Screen (NEGATIVE) Urine Methadone Screen (NEGATIVE) Acetaminophen 193 H* (10-30 (Therapeutic)) ug/mL Ur Barbiturates Screen (NEGATIVE) U Tricyclic Antidepress (NEGATIVE) Ur Phencyclidine Scrn (NEGATIVE) Ur Amphetamine Screen (NEGATIVE) U Methamphetamines Scrn (NEGATIVE) Urine MDMA Screen (NEGATIVE) U Benzodiazepines Scrn (NEGATIVE) Urine Cocaine Screen (NEGATIVE) U Marijuana (THC) Screen (NEGATIVE) Ethyl Alcohol (0) mg/dL SARS CoV-2 RNA Rapid BECKY (NEGATIVE) 07/29/20 07/29/20 07/29/20 Range/Units 03:04 03:04 07:06 WBC (5.0-10.0) 10^3/uL RBC (4.6-6.2) 10^6/uL Hgb (14.0-18.0) g/dL Hct (40.0-54.0) % MCV (80-100) fL MCH (27.0-34.0) pg MCHC (33.0-35.0) g/dL Plt Count (150-450) 10^3/uL PT (9.0-12.0) SEC INR (0.9-1.2) Sodium (136-145) mmol/L Potassium (3.5-5.1) mmol/L Chloride (98-107) mmol/L Carbon Dioxide (21-32) mmol/L Anion Gap (7-13) mEq/L BUN (7-18) mg/dL Creatinine (0.70-1.30) mg/dL Est Cr Clr Drug Dosing Estimated GFR (MDRD) BUN/Creatinine Ratio (No establ ref range) Glucose (74-99) mg/dL POC Glucose (70-105) mg/dl Calcium (8.5-10.1) mg/dL Magnesium (1.8-2.4) mg/dL Total Bilirubin 0.7 0.7 (0.2-1.0) mg/dL Direct Bilirubin 0.3 H 0.2 (0.0-0.2) mg/dL Indirect Bilirubin 0.4 0.5 AST 155 H 182 H (15-37) U/L ALT 293 H 309 H (16-63) U/L Alkaline Phosphatase 96 95 (46-116) U/L Ammonia (11-32) umol/L Troponin I (0.000-0.056) ng/mL Total Protein 7.8 7.5 (6.4-8.2) g/dL Albumin 2.9 L 2.8 L (3.4-5.0) g/dL Globulin 4.9 4.7 Albumin/Globulin Ratio 0.59 0.60 Amylase (25-115) U/L Urine Color (YELLOW) Urine Appearance (CLEAR) Urine pH (5.0-9.0) Ur Specific [place] (1.005-1.030) Urine Protein (NEGATIVE) Urine Glucose (UA) (NEGATIVE) Urine Ketones (NEGATIVE) Urine Occult Blood (NEGATIVE) Urine Nitrite (NEGATIVE) Urine Bilirubin (NEGATIVE) Urine Urobilinogen (0.2-1.0) mg/dL Ur Leukocyte Esterase (NEGATIVE) Salicylates (2.8-20(Therapeutic)) mg/dL Urine Opiates Screen (NEGATIVE) Ur Oxycodone Screen (NEGATIVE) Urine Methadone Screen (NEGATIVE) Acetaminophen 65 H* (10-30 (Therapeutic)) ug/mL Ur Barbiturates Screen (NEGATIVE) U Tricyclic Antidepress (NEGATIVE) Ur Phencyclidine Scrn (NEGATIVE) Ur Amphetamine Screen (NEGATIVE) U Methamphetamines Scrn (NEGATIVE) Urine MDMA Screen (NEGATIVE) U Benzodiazepines Scrn (NEGATIVE) Urine Cocaine Screen (NEGATIVE) U Marijuana (THC) Screen (NEGATIVE) Ethyl Alcohol (0) mg/dL SARS CoV-2 RNA Rapid BECKY (NEGATIVE) 07/29/20 07/29/20 07/29/20 Range/Units 07:06 07:06 07:06 WBC 10.1 H (5.0-10.0) 10^3/uL RBC 5.10 (4.6-6.2) 10^6/uL Hgb 16.2 (14.0-18.0) g/dL Hct 44.6 (40.0-54.0) % MCV 87.5 (80-100) fL MCH 31.8 (27.0-34.0) pg MCHC 36.3 H (33.0-35.0) g/dL Plt Count 207 (150-450) 10^3/uL PT 11.9 (9.0-12.0) SEC INR 1.3 H (0.9-1.2) Sodium (136-145) mmol/L Potassium (3.5-5.1) mmol/L Chloride (98-107) mmol/L Carbon Dioxide (21-32) mmol/L Anion Gap (7-13) mEq/L BUN (7-18) mg/dL Creatinine (0.70-1.30) mg/dL Est Cr Clr Drug Dosing Estimated GFR (MDRD) BUN/Creatinine Ratio (No establ ref range) Glucose (74-99) mg/dL POC Glucose (70-105) mg/dl Calcium (8.5-10.1) mg/dL Magnesium (1.8-2.4) mg/dL Total Bilirubin (0.2-1.0) mg/dL Direct Bilirubin (0.0-0.2) mg/dL Indirect Bilirubin AST (15-37) U/L ALT (16-63) U/L Alkaline Phosphatase (46-116) U/L Ammonia (11-32) umol/L Troponin I (0.000-0.056) ng/mL Total Protein (6.4-8.2) g/dL Albumin (3.4-5.0) g/dL Globulin Albumin/Globulin Ratio Amylase (25-115) U/L Urine Color (YELLOW) Urine Appearance (CLEAR) Urine pH (5.0-9.0) Ur Specific [place] (1.005-1.030) Urine Protein (NEGATIVE) Urine Glucose (UA) (NEGATIVE) Urine Ketones (NEGATIVE) Urine Occult Blood (NEGATIVE) Urine Nitrite (NEGATIVE) Urine Bilirubin (NEGATIVE) Urine Urobilinogen (0.2-1.0) mg/dL Ur Leukocyte Esterase (NEGATIVE) Salicylates (2.8-20(Therapeutic)) mg/dL Urine Opiates Screen (NEGATIVE) Ur Oxycodone Screen (NEGATIVE) Urine Methadone Screen (NEGATIVE) Acetaminophen 19 (10-30 (Therapeutic)) ug/mL Ur Barbiturates Screen (NEGATIVE) U Tricyclic Antidepress (NEGATIVE) Ur Phencyclidine Scrn (NEGATIVE) Ur Amphetamine Screen (NEGATIVE) U Methamphetamines Scrn (NEGATIVE) Urine MDMA Screen (NEGATIVE) U Benzodiazepines Scrn (NEGATIVE) Urine Cocaine Screen (NEGATIVE) U Marijuana (THC) Screen (NEGATIVE) Ethyl Alcohol (0) mg/dL SARS CoV-2 RNA Rapid BECKY (NEGATIVE) 07/29/20 07/29/20 07/29/20 Range/Units 07:06 07:56 11:11 WBC (5.0-10.0) 10^3/uL RBC (4.6-6.2) 10^6/uL Hgb (14.0-18.0) g/dL Hct (40.0-54.0) % MCV (80-100) fL MCH (27.0-34.0) pg MCHC (33.0-35.0) g/dL Plt Count (150-450) 10^3/uL PT (9.0-12.0) SEC INR (0.9-1.2) Sodium 133 L (136-145) mmol/L Potassium 3.9 (3.5-5.1) mmol/L Chloride 100 (98-107) mmol/L Carbon Dioxide 20 L (21-32) mmol/L Anion Gap 16.9 H (7-13) mEq/L BUN 16 (7-18) mg/dL Creatinine 0.81 (0.70-1.30) mg/dL Est Cr Clr Drug Dosing 167.09 Estimated GFR (MDRD) > 60 BUN/Creatinine Ratio (No establ ref range) Glucose 341 H (74-99) mg/dL POC Glucose 320 H (70-105) mg/dl Calcium 8.1 L (8.5-10.1) mg/dL Magnesium (1.8-2.4) mg/dL Total Bilirubin 0.4 (0.2-1.0) mg/dL Direct Bilirubin 0.2 (0.0-0.2) mg/dL Indirect Bilirubin 0.2 AST 209 H (15-37) U/L ALT 336 H (16-63) U/L Alkaline Phosphatase 99 (46-116) U/L Ammonia (11-32) umol/L Troponin I (0.000-0.056) ng/mL Total Protein 7.5 (6.4-8.2) g/dL Albumin 2.8 L (3.4-5.0) g/dL Globulin 4.7 Albumin/Globulin Ratio 0.60 Amylase (25-115) U/L Urine Color (YELLOW) Urine Appearance (CLEAR) Urine pH (5.0-9.0) Ur Specific [place] (1.005-1.030) Urine Protein (NEGATIVE) Urine Glucose (UA) (NEGATIVE) Urine Ketones (NEGATIVE) Urine Occult Blood (NEGATIVE) Urine Nitrite (NEGATIVE) Urine Bilirubin (NEGATIVE) Urine Urobilinogen (0.2-1.0) mg/dL Ur Leukocyte Esterase (NEGATIVE) Salicylates (2.8-20(Therapeutic)) mg/dL Urine Opiates Screen (NEGATIVE) Ur Oxycodone Screen (NEGATIVE) Urine Methadone Screen (NEGATIVE) Acetaminophen (10-30 (Therapeutic)) ug/mL Ur Barbiturates Screen (NEGATIVE) U Tricyclic Antidepress (NEGATIVE) Ur Phencyclidine Scrn (NEGATIVE) Ur Amphetamine Screen (NEGATIVE) U Methamphetamines Scrn (NEGATIVE) Urine MDMA Screen (NEGATIVE) U Benzodiazepines Scrn (NEGATIVE) Urine Cocaine Screen (NEGATIVE) U Marijuana (THC) Screen (NEGATIVE) Ethyl Alcohol (0) mg/dL SARS CoV-2 RNA Rapid BECKY (NEGATIVE) 07/29/20 07/29/20 07/29/20 Range/Units 11:40 16:09 17:05 WBC (5.0-10.0) 10^3/uL RBC (4.6-6.2) 10^6/uL Hgb (14.0-18.0) g/dL Hct (40.0-54.0) % MCV (80-100) fL MCH (27.0-34.0) pg MCHC (33.0-35.0) g/dL Plt Count (150-450) 10^3/uL PT (9.0-12.0) SEC INR (0.9-1.2) Sodium (136-145) mmol/L Potassium (3.5-5.1) mmol/L Chloride (98-107) mmol/L Carbon Dioxide (21-32) mmol/L Anion Gap (7-13) mEq/L BUN (7-18) mg/dL Creatinine (0.70-1.30) mg/dL Est Cr Clr Drug Dosing Estimated GFR (MDRD) BUN/Creatinine Ratio (No establ ref range) Glucose (74-99) mg/dL POC Glucose 409 H* 352 H (70-105) mg/dl Calcium (8.5-10.1) mg/dL Magnesium (1.8-2.4) mg/dL Total Bilirubin 0.5 (0.2-1.0) mg/dL Direct Bilirubin 0.2 (0.0-0.2) mg/dL Indirect Bilirubin 0.3 AST 276 H (15-37) U/L ALT 423 H (16-63) U/L Alkaline Phosphatase 101 (46-116) U/L Ammonia (11-32) umol/L Troponin I (0.000-0.056) ng/mL Total Protein 8.3 H (6.4-8.2) g/dL Albumin 3.1 L (3.4-5.0) g/dL Globulin 5.2 Albumin/Globulin Ratio 0.60 Amylase (25-115) U/L Urine Color (YELLOW) Urine Appearance (CLEAR) Urine pH (5.0-9.0) Ur Specific [place] (1.005-1.030) Urine Protein (NEGATIVE) Urine Glucose (UA) (NEGATIVE) Urine Ketones (NEGATIVE) Urine Occult Blood (NEGATIVE) Urine Nitrite (NEGATIVE) Urine Bilirubin (NEGATIVE) Urine Urobilinogen (0.2-1.0) mg/dL Ur Leukocyte Esterase (NEGATIVE) Salicylates (2.8-20(Therapeutic)) mg/dL Urine Opiates Screen (NEGATIVE) Ur Oxycodone Screen (NEGATIVE) Urine Methadone Screen (NEGATIVE) Acetaminophen (10-30 (Therapeutic)) ug/mL Ur Barbiturates Screen (NEGATIVE) U Tricyclic Antidepress (NEGATIVE) Ur Phencyclidine Scrn (NEGATIVE) Ur Amphetamine Screen (NEGATIVE) U Methamphetamines Scrn (NEGATIVE) Urine MDMA Screen (NEGATIVE) U Benzodiazepines Scrn (NEGATIVE) Urine Cocaine Screen (NEGATIVE) U Marijuana (THC) Screen (NEGATIVE) Ethyl Alcohol (0) mg/dL SARS CoV-2 RNA Rapid BECKY (NEGATIVE) Med Orders - Current: Current Medications Dextrose/Water (Dextrose 50% In Water) 50 ml IV ASDIRECTED PRN PRN Reason: Hypoglycemia Glucagon (Glucagen) 1 mg IM ASDIRECTED PRN PRN Reason: Hypoglycemia Heparin Sodium (Porcine) (Heparin Sodium) 5,000 units SUBCUT Q8HR [facility] Last Admin: 07/29/20 14:05 Dose: Not Given Documented by: Sodium Chloride (Normal Saline) 1,000 mls @ 125 mls/hr IV ASDIRECTED [facility] Last Admin: 07/29/20 10:58 Dose: 125 mls/hr Documented by: Acetylcysteine 10,000 mg/ (Sodium Chloride) 1,050 mls @ 65.625 mls/hr IV ONETIME ONE Stop: 07/29/20 19:29 Last Admin: 07/29/20 03:52 Dose: 65.625 mls/hr Documented by: Insulin Human Lispro (Humalog) 0 unit SUBCUT WITHMEALSANDBED [facility]; Protocol Last Admin: 07/29/20 17:41 Dose: 10 units Documented by: Ondansetron HCl (Zofran) 4 mg IVPUSH Q4H PRN PRN Reason: Nausea/Vomiting Last Admin: 07/29/20 00:13 Dose: 4 mg Documented by: Ondansetron HCl (Zofran Odt) 4 mg PO Q4H PRN PRN Reason: nausea, able to take PO Ondansetron HCl (Zofran) 4 mg IVPUSH Q4H PRN PRN Reason: Nausea/Vomiting Discontinued Medications Dextrose/Water (Dextrose 50% In Water) 50 ml IV ASDIRECTED PRN PRN Reason: Hypoglycemia Dextrose/Water (Dextrose 50% In Water) 50 ml IV ASDIRECTED PRN PRN Reason: Hypoglycemia Glucagon (Glucagen) 1 mg IM ASDIRECTED PRN PRN Reason: Hypoglycemia Glucagon (Glucagen) 1 mg IM ASDIRECTED PRN PRN Reason: Hypoglycemia Acetylcysteine 1,500 mg/ (Dextrose/Water) 207.5 mls @ 200 mls/hr IV ONETIME ONE; Protocol Stop: 07/28/20 20:47 Last Admin: 07/28/20 20:02 Dose: 200 mls/hr Documented by: Acetylcysteine 13,500 mg/ (Dextrose/Water) 267.5 mls @ 267.5 mls/hr IV ONETIME ONE Stop: 07/28/20 23:29 Last Admin: 07/28/20 22:42 Dose: 267.5 mls/hr Documented by: Acetylcysteine 5,000 mg/ (Dextrose/Water) 525 mls @ 131.25 mls/hr IV ONETIME ONE Stop: 07/29/20 02:14 Acetylcysteine 10,000 mg/ (Sodium Chloride) 1,050 mls @ 65.625 mls/hr IV ONETIME ONE Stop: 07/29/20 14:14 Acetylcysteine 5,000 mg/ (Dextrose/Water) 525 mls @ 131.25 mls/hr IV ONETIME ON E Stop: 07/29/20 03:29 Last Admin: 07/28/20 23:49 Dose: 131.25 mls/hr Documented by: Acetylcysteine (Acetadote 20%) Confirm Administered Dose 30 mls @ as directed .ROUTE .STK-MED ONE Stop: 07/29/20 03:19 Last Admin: 07/29/20 03:26 Dose: Not Given Documented by: Insulin Human Lispro (Humalog) 10 unit SUBCUT ONETIME ONE Stop: 07/28/20 21:46 Last Admin: 07/28/20 21:55 Dose: 10 unit Documented by: Insulin Human Regular (Humulin R) 10 unit IV ONETIME ONE Stop: 07/28/20 19:56 Last Admin: 07/28/20 20:01 Dose: 10 unit Documented by: Lorazepam (Ativan) 0.5 mg PO ONETIME ONE Stop: 07/29/20 00:33 Last Admin: 07/29/20 00:46 Dose: 0.5 mg Documented by: - Exam General: Alert, Oriented HEENT: Pupils Equal, Pupils Reactive, EOMI, Mucous Membr. Moist/[place] Neck: Supple Lungs: Clear to Auscultation, Normal Respiratory Effort Cardiovascular: Regular Rate, Regular Rhythm GI/Abdominal Exam: Normal Bowel Sounds, Soft, Non-Tender, No Organomegaly, No Distention, No Abnormal Bruit, No Mass, Pelvis Stable Back Exam: Normal Inspection, Full Range of Motion Extremities: Normal Inspection, Normal Range of Motion, Non-Tender, No Pedal Edema, Normal Capillary Refill Skin: Warm, Dry, Intact Neurological: No New Focal Deficit Psy/Mental Status: Alert, Normal Affect, Normal Mood Sepsis Event Note - Evaluation Sepsis Screening Result: No Definite Risk - Focused Exam Vital Signs: Vital Signs Temp Pulse Resp BP Pulse Ox 07/29/20 16:00 95.6 F L 100 16 155/101 H 100 07/29/20 12:00 97.0 F 93 20 127/96 H 98 07/29/20 08:26 96.8 F L 94 20 129/100 H 98 - Problem List Review Problem List Initiated/Reviewed/Updated: Yes - My Orders Last 24 Hours: My Active Orders 07/28/20 21:07 Cardiac Monitoring [RC] 08,20 Oxygen Therapy [RC] PRN Up ad [place]na [RC] ASDIRECTED VTE/DVT Education [RC] PER UNIT ROUTINE Vital Signs [RC] 00,04,08,12,16,20 Ondansetron [Zofran ODT] 4 mg PO Q4H PRN Ondansetron [Zofran] 4 mg IVPUSH Q4H PRN Resuscitation Status Routine 07/28/20 21:15 Sodium Chloride 0.9% [Normal Saline] 1,000 ml IV ASDIRECTED 07/28/20 21:40 Suicide Precautions [OM.PC] Routine 07/28/20 21:45 Dextrose 50% in Water 50 ml IV ASDIRECTED PRN Glucagon,Human Recombinant [GlucaGen] 1 mg IM ASDIRECTED PRN 07/28/20 22:00 Heparin Sodium 5,000 units SUBCUT Q8HR 07/29/20 03:30 Acetylcysteine [Acetadote 20%] 10,000 mg Sodium Chloride 0.45% 1,000 ml IV ONETIME 07/29/20 07:00 Blood Glucose Check, Bedside [RC] QIDACANDBED 07/29/20 Breakfast Lactose Diet [DIET] 07/29/20 08:00 Insulin Lispro [HumaLOG] See Protocol SUBCUT WITHMEALSANDBED 07/29/20 23:00 HEPATIC FUNCTION PANEL,[facility] [CHEM] Q6H - Plan Plan:: Patient is a 34-year-old male with a medical history of diabetes who presented after ingesting unknown but excess amount of Tylenol in a suicide attempt. He was found to have elevated Tylenol level of 398 with U tox positive for methamphetamines. He also had hyponatremia of 129, anion gap of 17.8, elevated transaminases and hyperglycemia of 597. Acute acetaminophen overdose Drug induced liver injury Continue N-acetylcysteine Every 6 hourly hepatic function test - Acetaminophen levels normalized -INR 1.3 and ammonia level normal Attempted to transfer patient but no beds available at [facility] at the moment Suicidal attempt Suicide precautions Transfer to higher acuity hospital for psychiatric care soon as bed available Hyperglycemia Type 2 diabetes mellitus Glucose of 597 on presentation Hold Metformin Sliding scale insulin - IVF normal saline Anion gap diabetic acidosis Likely due to lactic acidosis due to liver injury Repeat in a.m. Hyponatremia Sodium of 129 is likely due to hypoglycemia Trend sodium, improving Methamphetamine abuse Counseled on cessation DVT prophylaxis: Heparin CODE STATUS: Full code
[2020-07-30] MEDS: Melatonin 3 MG Tab PO PRN ×2 (00:34→22:09)
[2020-07-30] MEDS: Sodium Chloride 0.9% 1,000 ML IV SCH ×3 (04:40→21:31)
[2020-07-30] MEDS: Heparin Sodium 5,000 Units/ML Vial SUBCUT SCH ×3 (05:52→22:05)
[2020-07-30 07:35] LABS: ANION GAP 15.4 mEq/L (7-13); CHLORIDE,CL 100 mmol/L (98-107); SODIUM,NA 136 mmol/L (136-145)
[2020-07-30] MEDS: Insulin Lispro 100 Units/ML 3 ML Vial SUBCUT SCH ×4 (08:52→22:03)
--- NOTE | 2020-07-30 10:33 | PCM.PN ---
- General Info Date of Service: 07/30/20 Admission Dx/Problem (Free Text): Admission Diagnosis/Problem Admission Diagnosis/Problem Acetaminophen overdose Subjective Update: Patient seen and examined today. Has no complaints. He denies abdominal pain, nausea, vomiting. He was able to hold all his breakfast. No fever or chills. No jaundice. Functional Status: Reports: Pain Controlled - Review of Systems General: Reports: No Symptoms HEENT: Reports: No Symptoms Pulmonary: Reports: No Symptoms Cardiovascular: Reports: No Symptoms Gastrointestinal: Reports: No Symptoms Genitourinary: Reports: No Symptoms Musculoskeletal: Reports: No Symptoms Skin: Reports: No Symptoms Neurological: Reports: No Symptoms Psychiatric: Reports: No Symptoms - Patient Data Vitals - Most Recent: Last Vital Signs Temp 96.8 F L 07/30/20 08:00 Pulse 83 07/30/20 08:00 Resp 16 07/30/20 08:00 BP 136/75 07/30/20 08:00 Pulse Ox 96 07/30/20 08:00 Weight - Most Recent: 227 lb I&O - Last 24 Hours: Intake & Output 07/29/20 07/30/20 07/30/20 22:59 06:59 14:59 Intake Total 400 660 360 Balance 400 660 360 Lab Results Last 24 Hours: Laboratory Results - last 24 hr 07/29/20 07/29/20 07/29/20 Range/Units 11:11 11:40 16:09 WBC (5.0-10.0) 10^3/uL RBC (4.6-6.2) 10^6/uL Hgb (14.0-18.0) g/dL Hct (40.0-54.0) % MCV (80-100) fL MCH (27.0-34.0) pg MCHC (33.0-35.0) g/dL Plt Count (150-450) 10^3/uL PT (9.0-12.0) SEC INR (0.9-1.2) Sodium (136-145) mmol/L Potassium (3.5-5.1) mmol/L Chloride (98-107) mmol/L Carbon Dioxide (21-32) mmol/L Anion Gap (7-13) mEq/L BUN (7-18) mg/dL Creatinine (0.70-1.30) mg/dL Est Cr Clr Drug Dosing mL/min Estimated GFR (MDRD) BUN/Creatinine Ratio (No establ ref range) Glucose (74-99) mg/dL POC Glucose 409 H* 352 H (70-105) mg/dl Calcium (8.5-10.1) mg/dL Total Bilirubin 0.4 (0.2-1.0) mg/dL Direct Bilirubin 0.2 (0.0-0.2) mg/dL Indirect Bilirubin 0.2 AST 209 H (15-37) U/L ALT 336 H (16-63) U/L Alkaline Phosphatase 99 (46-116) U/L Ammonia (11-32) umol/L Total Protein 7.5 (6.4-8.2) g/dL Albumin 2.8 L (3.4-5.0) g/dL Globulin 4.7 Albumin/Globulin Ratio 0.60 07/29/20 07/29/20 07/29/20 Range/Units 17:05 20:52 23:00 WBC (5.0-10.0) 10^3/uL RBC (4.6-6.2) 10^6/uL Hgb (14.0-18.0) g/dL Hct (40.0-54.0) % MCV (80-100) fL MCH (27.0-34.0) pg MCHC (33.0-35.0) g/dL Plt Count (150-450) 10^3/uL PT (9.0-12.0) SEC INR (0.9-1.2) Sodium (136-145) mmol/L Potassium (3.5-5.1) mmol/L Chloride (98-107) mmol/L Carbon Dioxide (21-32) mmol/L Anion Gap (7-13) mEq/L BUN (7-18) mg/dL Creatinine (0.70-1.30) mg/dL Est Cr Clr Drug Dosing mL/min Estimated GFR (MDRD) BUN/Creatinine Ratio (No establ ref range) Glucose (74-99) mg/dL POC Glucose 271 H (70-105) mg/dl Calcium (8.5-10.1) mg/dL Total Bilirubin 0.5 0.5 (0.2-1.0) mg/dL Direct Bilirubin 0.2 0.2 (0.0-0.2) mg/dL Indirect Bilirubin 0.3 0.3 AST 276 H 339 H (15-37) U/L ALT 423 H 465 H (16-63) U/L Alkaline Phosphatase 101 101 (46-116) U/L Ammonia (11-32) umol/L Total Protein 8.3 H 7.6 (6.4-8.2) g/dL Albumin 3.1 L 2.9 L (3.4-5.0) g/dL Globulin 5.2 4.7 Albumin/Globulin Ratio 0.60 0.62 07/30/20 07/30/20 07/30/20 Range/Units 06:10 06:10 06:10 WBC 6.2 (5.0-10.0) 10^3/uL RBC 5.22 (4.6-6.2) 10^6/uL Hgb 16.4 (14.0-18.0) g/dL Hct 45.7 (40.0-54.0) % MCV 87.5 (80-100) fL MCH 31.4 (27.0-34.0) pg MCHC 35.9 H (33.0-35.0) g/dL Plt Count 221 (150-450) 10^3/uL PT 11.0 (9.0-12.0) SEC INR 1.2 (0.9-1.2) Sodium 136 (136-145) mmol/L Potassium 4.4 (3.5-5.1) mmol/L Chloride 100 (98-107) mmol/L Carbon Dioxide 25 (21-32) mmol/L Anion Gap 15.4 H (7-13) mEq/L BUN 13 (7-18) mg/dL Creatinine 0.81 (0.70-1.30) mg/dL Est Cr Clr Drug Dosing 167.09 mL/min Estimated GFR (MDRD) > 60 BUN/Creatinine Ratio 16.0 (No establ ref range) Glucose 228 H (74-99) mg/dL POC Glucose (70-105) mg/dl Calcium 8.4 L (8.5-10.1) mg/dL Total Bilirubin 0.8 (0.2-1.0) mg/dL Direct Bilirubin (0.0-0.2) mg/dL Indirect Bilirubin AST 523 H (15-37) U/L ALT 643 H (16-63) U/L Alkaline Phosphatase 92 (46-116) U/L Ammonia (11-32) umol/L Total Protein 7.6 (6.4-8.2) g/dL Albumin 3.1 L (3.4-5.0) g/dL Globulin 4.5 Albumin/Globulin Ratio 0.69 07/30/20 07/30/20 Range/Units 06:10 07:55 WBC (5.0-10.0) 10^3/uL RBC (4.6-6.2) 10^6/uL Hgb (14.0-18.0) g/dL Hct (40.0-54.0) % MCV (80-100) fL MCH (27.0-34.0) pg MCHC (33.0-35.0) g/dL Plt Count (150-450) 10^3/uL PT (9.0-12.0) SEC INR (0.9-1.2) Sodium (136-145) mmol/L Potassium (3.5-5.1) mmol/L Chloride (98-107) mmol/L Carbon Dioxide (21-32) mmol/L Anion Gap (7-13) mEq/L BUN (7-18) mg/dL Creatinine (0.70-1.30) mg/dL Est Cr Clr Drug Dosing mL/min Estimated GFR (MDRD) BUN/Creatinine Ratio (No establ ref range) Glucose (74-99) mg/dL POC Glucose 219 H (70-105) mg/dl Calcium (8.5-10.1) mg/dL Total Bilirubin (0.2-1.0) mg/dL Direct Bilirubin (0.0-0.2) mg/dL Indirect Bilirubin AST (15-37) U/L ALT (16-63) U/L Alkaline Phosphatase (46-116) U/L Ammonia 25 (11-32) umol/L Total Protein (6.4-8.2) g/dL Albumin (3.4-5.0) g/dL Globulin Albumin/Globulin Ratio Med Orders - Current: Current Medications Dextrose/Water (Dextrose 50% In Water) 50 ml IV ASDIRECTED PRN PRN Reason: Hypoglycemia Glucagon (Glucagen) 1 mg IM ASDIRECTED PRN PRN Reason: Hypoglycemia Heparin Sodium (Porcine) (Heparin Sodium) 5,000 units SUBCUT Q8HR [facility] Last Admin: 07/30/20 05:52 Dose: 5,000 units Documented by: Sodium Chloride (Normal Saline) 1,000 mls @ 125 mls/hr IV ASDIRECTED [facility] Last Admin: 07/30/20 04:40 Dose: 125 mls/hr Documented by: Insulin Human Lispro (Humalog) 0 unit SUBCUT WITHMEALSANDBED [facility]; Protocol Last Admin: 07/30/20 08:52 Dose: 4 units Documented by: Melatonin (Melatonin) 3 mg PO BEDTIME PRN PRN Reason: Insomnia Last Admin: 07/30/20 00:34 Dose: 3 mg Documented by: Ondansetron HCl (Zofran) 4 mg IVPUSH Q4H PRN PRN Reason: Nausea/Vomiting Last Admin: 07/29/20 00:13 Dose: 4 mg Documented by: Ondansetron HCl (Zofran Odt) 4 mg PO Q4H PRN PRN Reason: nausea, able to take PO Ondansetron HCl (Zofran) 4 mg IVPUSH Q4H PRN PRN Reason: Nausea/Vomiting Discontinued Medications Dextrose/Water (Dextrose 50% In Water) 50 ml IV ASDIRECTED PRN PRN Reason: Hypoglycemia Dextrose/Water (Dextrose 50% In Water) 50 ml IV ASDIRECTED PRN PRN Reason: Hypoglycemia Glucagon (Glucagen) 1 mg IM ASDIRECTED PRN PRN Reason: Hypoglycemia Glucagon (Glucagen) 1 mg IM ASDIRECTED PRN PRN Reason: Hypoglycemia Acetylcysteine 1,500 mg/ (Dextrose/Water) 207.5 mls @ 200 mls/hr IV ONETIME ONE; Protocol Stop: 07/28/20 20:47 Last Admin: 07/28/20 20:02 Dose: 200 mls/hr Documented by: Acetylcysteine 13,500 mg/ (Dextrose/Water) 267.5 mls @ 267.5 mls/hr IV ONETIME ONE Stop: 07/28/20 23:29 Last Admin: 07/28/20 22:42 Dose: 267.5 mls/hr Documented by: Acetylcysteine 5,000 mg/ (Dextrose/Water) 525 mls @ 131.25 mls/hr IV ONETIME ONE Stop: 07/29/20 02:14 Acetylcysteine 10,000 mg/ (Sodium Chloride) 1,050 mls @ 65.625 mls/hr IV ONETIME ONE Stop: 07/29/20 14:14 Acetylcysteine 5,000 mg/ (Dextrose/Water) 525 mls @ 131.25 mls/hr IV ONETIME ONE Stop: 07/29/20 03:29 Last Admin: 07/28/20 23:49 Dose: 131.25 mls/hr Documented by: Acetylcysteine 10,000 mg/ (Sodium Chloride) 1,050 mls @ 65.625 mls/hr IV ONETIME ONE Stop: 07/29/20 19:29 Last Admin: 07/29/20 03:52 Dose: 65.625 mls/hr Documented by: Acetylcysteine (Acetadote 20%) Confirm Administered Dose 30 mls @ as directed .ROUTE .STK-MED ONE Stop: 07/29/20 03:19 Last Admin: 07/29/20 03:26 Dose: Not Given Documented by: Insulin Human Lispro (Humalog) 10 unit SUBCUT ONETIME ONE Stop: 07/28/20 21:46 Last Admin: 07/28/20 21:55 Dose: 10 unit Documented by: Insulin Human Regular (Humulin R) 10 unit IV ONETIME ONE Stop: 07/28/20 19:56 Last Admin: 07/28/20 20:01 Dose: 10 unit Documented by: Lorazepam (Ativan) 0.5 mg PO ONETIME ONE Stop: 07/29/20 00:33 Last Admin: 07/29/20 00:46 Dose: 0.5 mg Documented by: - Exam Quality Assessment: DVT Prophylaxis General: Alert, Oriented HEENT: Pupils Equal, Pupils Reactive, EOMI, Mucous Membr. Moist/[place] Neck: Supple Lungs: Clear to Auscultation, Normal Respiratory Effort Cardiovascular: Regular Rate, Regular Rhythm GI/Abdominal Exam: Normal Bowel Sounds, Soft, Non-Tender, No Organomegaly, No Distention, No Abnormal Bruit, No Mass, Pelvis Stable (Male) Exam: No Hernia, Normal Inspection, Normal Prostate, Circumcised Back Exam: Normal Inspection, Full Range of Motion Extremities: Normal Inspection, Normal Range of Motion, Non-Tender, No Pedal Edema, Normal Capillary Refill Skin: Warm, Dry, Intact Wound/Incisions: Healing Well Neurological: No New Focal Deficit Psy/Mental Status: Alert, Normal Affect, Normal Mood Sepsis Event Note - Evaluation Sepsis Screening Result: No Definite Risk - Focused Exam Vital Signs: Vital Signs Temp Pulse Resp BP Pulse Ox 07/30/20 08:00 96.8 F L 83 16 136/75 96 - Problem List Review Problem List Initiated/Reviewed/Updated: Yes - Plan Plan:: Patient is a 34-year-old male with a medical history of diabetes who presented after ingesting unknown but excess amount of Tylenol in a suicide attempt. He was found to have elevated Tylenol level of 398 with U tox positive for methamphetamines. He also had hyponatremia of 129, anion gap of 17.8, elevated transaminases and hyperglycemia of 597. Acute acetaminophen overdose Drug induced liver injury Completed N-acetylcysteine protocol Every 6 hourly hepatic function test - Acetaminophen levels normalized -INR daily Attempted to transfer patient but no beds available at [facility] at the moment Suicidal attempt Suicide precautions Transfer to higher acuity hospital for psychiatric care soon as bed available Hyperglycemia Type 2 diabetes mellitus Glucose of 597 on presentation Hold Metformin Sliding scale insulin - IVF normal saline Anion gap diabetic acidosis Likely due to lactic acidosis due to liver injury Follow-up Hyponatremia This is pseudohyponatremia from hyperglycemia Resolved Methamphetamine abuse Counseled on cessation DVT prophylaxis: Heparin CODE STATUS: Full code We will continue with
[2020-07-31] MEDS: Sodium Chloride 0.9% 1,000 ML IV SCH ×2 (05:23→13:14)
[2020-07-31] MEDS: Heparin Sodium 5,000 Units/ML Vial SUBCUT SCH ×2 (05:25→13:20)
[2020-07-31] MEDS: Insulin Lispro 100 Units/ML 3 ML Vial SUBCUT SCH ×2 (08:13→11:53)
--- NOTE | 2020-07-31 14:55 | PCM.DCSUM1 ---
Discharge Summary - Hospital Course Free Text/Narrative:: Patient is a 34-year-old male with a medical history of diabetes who presented after ingesting unknown but excess amount of Tylenol in a suicide attempt. He was found to have elevated Tylenol level of 398 with U tox positive for methamphetamines. He was also hyponatremic with Na of 129, anion gap of 17.8 and elevated transaminases and hyperglycemia of 597. He completed N- acetylcysteine protocol. He also received IV insulin. Hyperglycemia resolved. Hyponatremia resolved. Liver enzymes improved and remained stable. Patient has no nausea, vomiting, abdominal pain. He is tolerating meals. [facility] psychiatry was consulted and accepted patient to their inpatient unit. Dr. Clemons agrees to accept patient. Patient agreed to go to inpatient psychiatry unit to get the help he needs. He was safely discharged Diagnosis: Stroke: No - Discharge Data Discharge Date: 07/31/20 Discharge Disposition: DC/Tfer to Psych Hosp/Unit 65 Condition: Good - Referral to Home Health Primary Care Physician: Fratun Pichardo MD - Patient Instructions Diet: Diabetic Diet Activity: As Tolerated Showering/Bathing: January Shower Notify Provider of: Fever, Increased Pain, Swelling and Redness, Nausea and/or Vomiting - Discharge Plan *PRESCRIPTION DRUG MONITORING PROGRAM REVIEWED*: No *COPY OF PRESCRIPTION DRUG MONITORING REPORT IN PATIENT [place]: No Home Medications: Home Meds metFORMIN [Glucophage] tab PO 06/24/20 [History] Oxygen Therapy Mode: Room Air Forms: ED Department Discharge Referrals: Fartun Pichardo MD [Primary Care Provider] - - Discharge Summary/Plan Comment DC Time >30 min.: Yes - General Info Date of Service: 07/31/20 Admission Dx/Problem (Free Text: Admission Diagnosis/Problem Admission Diagnosis/Problem Acetaminophen overdose Subjective Update: Patient seen and examined today. Has no complaints. He denies abdominal pain, nausea, vomiting. No fever or chills. No jaundice. Functional Status: Reports: Pain Controlled - Review of Systems General: Reports: No Symptoms HEENT: Reports: No Symptoms Pulmonary: Reports: No Symptoms Cardiovascular: Reports: No Symptoms Gastrointestinal: Reports: No Symptoms Genitourinary: Reports: No Symptoms Musculoskeletal: Reports: No Symptoms Skin: Reports: No Symptoms Neurological: Reports: No Symptoms Psychiatric: Reports: No Symptoms - Patient Data Vitals - Most Recent: Last Vital Signs Temp 97.8 F 07/31/20 12:00 Pulse 84 07/31/20 12:00 Resp 18 07/31/20 12:00 BP 131/73 07/31/20 12:00 Pulse Ox 96 07/31/20 12:00 Weight - Most Recent: 227 lb I&O - Last 24 hours: Intake & Output 07/30/20 07/31/20 07/31/20 22:59 06:59 14:59 Intake Total 2391 Balance 2391 Lab Results - Last 24 hrs: Laboratory Results - last 24 hr 07/30/20 07/30/20 07/31/20 Range/Units 16:18 21:23 07:33 POC Glucose 325 H 219 H 325 H (70-105) mg/dl Total Bilirubin (0.2-1.0) mg/dL Direct Bilirubin (0.0-0.2) mg/dL Indirect Bilirubin AST (15-37) U/L ALT (16-63) U/L Alkaline Phosphatase (46-116) U/L Total Protein (6.4-8.2) g/dL Albumin (3.4-5.0) g/dL Globulin Albumin/Globulin Ratio 07/31/20 07/31/20 Range/Units 10:20 11:37 POC Glucose 295 H (70-105) mg/dl Total Bilirubin 0.4 (0.2-1.0) mg/dL Direct Bilirubin 0.2 (0.0-0.2) mg/dL Indirect Bilirubin 0.2 AST 157 H (15-37) U/L ALT 452 H (16-63) U/L Alkaline Phosphatase 95 (46-116) U/L Total Protein 7.1 (6.4-8.2) g/dL Albumin 2.9 L (3.4-5.0) g/dL Globulin 4.2 Albumin/Globulin Ratio 0.69 Med Orders - Current: Current Medications Dextrose/Water (Dextrose 50% In Water) 50 ml IV ASDIRECTED PRN PRN Reason: Hypoglycemia Glucagon (Glucagen) 1 mg IM ASDIRECTED PRN PRN Reason: Hypoglycemia Heparin Sodium (Porcine) (Heparin Sodium) 5,000 units SUBCUT Q8HR [facility] Last Admin: 07/31/20 13:20 Dose: 5,000 units Documented by: Sodium Chloride (Normal Saline) 1,000 mls @ 125 mls/hr IV ASDIRECTED [facility] Last Admin: 07/31/20 13:14 Dose: 125 mls/hr Documented by: Influenza Virus Vaccine (Pharmacy To Dose - Influenza Vaccine) 1 each IM DAILY [facility] Last Admin: 07/31/20 10:49 Dose: Not Given Documented by: Insulin Human Lispro (Humalog) 0 unit SUBCUT WITHMEALSANDBED [facility]; Protocol Last Admin: 07/31/20 11:53 Dose: 6 units Documented by: Melatonin (Melatonin) 3 mg PO BEDTIME PRN PRN Reason: Insomnia Last Admin: 07/30/20 22:09 Dose: 3 mg Documented by: Ondansetron HCl (Zofran) 4 mg IVPUSH Q4H PRN PRN Reason: Nausea/Vomiting Last Admin: 07/29/20 00:13 Dose: 4 mg Documented by: Ondansetron HCl (Zofran Odt) 4 mg PO Q4H PRN PRN Reason: nausea, able to take PO Ondansetron HCl (Zofran) 4 mg IVPUSH Q4H PRN PRN Reason: Nausea/Vomiting Discontinued Medications Dextrose/Water (Dextrose 50% In Water) 50 ml IV ASDIRECTED PRN PRN Reason: Hypoglycemia Dextrose/Water (Dextrose 50% In Water) 50 ml IV ASDIRECTED PRN PRN Reason: Hypoglycemia Glucagon (Glucagen) 1 mg IM ASDIRECTED PRN PRN Reason: Hypoglycemia Glucagon (Glucagen) 1 mg IM ASDIRECTED PRN PRN Reason: Hypoglycemia Acetylcysteine 1,500 mg/ (Dextrose/Water) 207.5 mls @ 200 mls/hr IV ONETIME ONE; Protocol Stop: 07/28/20 20:47 Last Admin: 07/28/20 20:02 Dose: 200 mls/hr Documented by: Acetylcysteine 13,500 mg/ (Dextrose/Water) 267.5 mls @ 267.5 mls/hr IV ONETIME ONE Stop: 07/28/20 23:29 Last Admin: 07/28/20 22:42 Dose: 267.5 mls/hr Documented by: Acetylcysteine 5,000 mg/ (Dextrose/Water) 525 mls @ 131.25 mls/hr IV ONETIME ONE Stop: 07/29/20 02:14 Acetylcysteine 10,000 mg/ (Sodium Chloride) 1,050 mls @ 65.625 mls/hr IV ONETIME ONE Stop: 07/29/20 14:14 Acetylcysteine 5,000 mg/ (Dextrose/Water) 525 mls @ 131.25 mls/hr IV ONETIME ONE Stop: 07/29/20 03:29 Last Admin: 07/28/20 23:49 Dose: 131.25 mls/hr Documented by: Acetylcysteine 10,000 mg/ (Sodium Chloride) 1,050 mls @ 65.625 mls/hr IV ONETIME ONE Stop: 07/29/20 19:29 Last Admin: 07/29/20 03:52 Dose: 65.625 mls/hr Documented by: Acetylcysteine (Acetadote 20%) Confirm Administered Dose 30 mls @ as directed .ROUTE .STK-MED ONE Stop: 07/29/20 03:19 Last Admin: 07/29/20 03:26 Dose: Not Given Documented by: Insulin Human Lispro (Humalog) 10 unit SUBCUT ONETIME ONE Stop: 07/28/20 21:46 Last Admin: 07/28/20 21:55 Dose: 10 unit Documented by: Insulin Human Regular (Humulin R) 10 unit IV ONETIME ONE Stop: 07/28/20 19:56 Last Admin: 07/28/20 20:01 Dose: 10 unit Documented by: Lorazepam (Ativan) 0.5 mg PO ONETIME ONE Stop: 07/29/20 00:33 Last Admin: 07/29/20 00:46 Dose: 0.5 mg Documented by: - Exam General: Reports: Alert, Oriented HEENT: Reports: Pupils Equal, Pupils Reactive, EOMI, Mucous Membr. Moist/[place] Neck: Reports: Supple Lungs: Reports: Clear to Auscultation, Normal Respiratory Effort Cardiovascular: Reports: Regular Rate, Regular Rhythm GI/Abdominal Exam: Normal Bowel Sounds, Soft, Non-Tender, No Organomegaly, No Distention, No Abnormal Bruit, No Mass, Pelvis Stable (Male) Exam: No Hernia, Normal Inspection, Normal Prostate, Circumcised Rectal (Males) Exam: Normal Exam, Normal Rectal Tone, Prostate Normal Back Exam: Reports: Normal Inspection, Full Range of Motion Extremities: Normal Inspection, Normal Range of Motion, Non-Tender, No Pedal Edema, Normal Capillary Refill Skin: Reports: Warm, Dry, Intact Wound/Incisions: Reports: Healing Well Neurological: Reports: No New Focal Deficit Psy/Mental Status: Reports: Alert, Normal Affect, Normal Mood
[2020-07-31 16:46] VITALS: BP 156/93; PULSE 98
== END 2020-07-31 15:00 | DRG 918 ==
LOC: DL.ED 18:13 → DL.MS 20:27
PROVIDERS: ADMIT Internal Medicine; ATTEND Student in an Organized Health Care Education/Training Program
DX: T39.1X2A Poisoning by 4-Aminophenol derivatives, intentional self-harm, initial encounter (principal); E87.1 Hypo-osmolality and hyponatremia; E73.9 Lactose intolerance, unspecified; I42.9 Cardiomyopathy, unspecified; E87.2 Acidosis; E11.65 Type 2 diabetes mellitus with hyperglycemia; F15.10 Other stimulant abuse, uncomplicated; H54.7 Unspecified visual loss; M19.90 Unspecified osteoarthritis, unspecified site; E11.9 Type 2 diabetes mellitus without complications; M54.9 Dorsalgia, unspecified; Z20.828 Contact with and (suspected) exposure to other viral communicable diseases; G89.29 Other chronic pain; F32.9 Major depressive disorder, single episode, unspecified; Z91.011 Allergy to milk products; Z79.84 Long term (current) use of oral hypoglycemic drugs
CPT/HCPCS: 36415; 80048; 80053; 80076; 80305-QW; 80307; 81003; 82140; 82150; 82962; 83735; 84484; 85025; 85027; 85610; 96365; 99284; 99285-25; A9270-GY; J0132; J1644; J1815-GY; J2405; J7030; J7060; U0002

== ENCOUNTER 2024-03-15 13:50 | Emergency (ER) | payer SELFPAY ==
[2024-03-15] MEDS: Sodium Chloride 0.9% 10 ML Syringe FLUSH PRN (14:07)
[2024-03-15] MEDS: Aspirin 81 MG Tab.Chew PO ONE (14:07)
[2024-03-15 14:11] VITALS: BP 146/84; PULSE 97
[2024-03-15 14:11] LABS: BASOPHILS PERCENT AUTO 0.2 % (0.0-1.0); EOSINOPHILS PERCENT AUTO 4.4 % (1.0-3.0); HEMATOCRIT 42.6 % (40.0-54.0); HEMOGLOBIN 15.2 g/dL (14.0-18.0); LYMPHOCYTES PERCENT AUTO 17.7 % (20.5-50.1); MEAN CORPUSCULAR HEMOGLOBIN 30.7 pg (27.0-34.0); MEAN CORPUSCULAR HGB CONC 35.7 g/dL (33.0-35.0); MEAN CORPUSCULAR VOLUME 86.1 fL (80-100); MONOCYTES PERCENT AUTO 6.6 % (2-8); NEUTROPHILS PERCENT AUTO 71.1 % (42.2-75.2); PLATELET COUNT,PLT 230 10^3/uL (150-450); RED BLOOD CELL COUNT 4.95 10^6/uL (4.6-6.2); WHITE BLOOD CELL COUNT,WBC 10.3 10^3/uL (5.0-10.0)
[2024-03-15 14:14] LABS: APPEARANCE,URINE CLEAR (CLEAR); BILIRUBIN,URINE NEGATIVE (NEGATIVE); COLOR,URINE YELLOW (YELLOW); GLUCOSE,URINE NEGATIVE (NEGATIVE); KETONES,URINE NEGATIVE (NEGATIVE); LEUKOCYTE ESTERASE,URINE NEGATIVE (NEGATIVE); NITRITE,URINE NEGATIVE (NEGATIVE); OCCULT BLOOD,URINE NEGATIVE (NEGATIVE); PH,URINE 6.5 (5.0-9.0); PROTEIN,URINE NEGATIVE (NEGATIVE); UROBILINOGEN,URINE 0.2 mg/dL (0.2-1.0)
[2024-03-15 14:15] LABS: AMPHETAMINES,URINE NEGATIVE (NEGATIVE); BARBITURATES,URINE NEGATIVE (NEGATIVE); BENZODIAZEPINE,URINE NEGATIVE (NEGATIVE); MDMA (ECSTASY), URINE NEGATIVE (NEGATIVE); METHADONE,URINE NEGATIVE (NEGATIVE); METHAMPHETAMINES,URINE NEGATIVE (NEGATIVE); OPIATES,URINE NEGATIVE (NEGATIVE); OXYCODONE,URINE NEGATIVE (NEGATIVE); PHENCYCLIDINE,URINE NEGATIVE (NEGATIVE); TCA,URINE NEGATIVE (NEGATIVE)
[2024-03-15 14:30] LABS: PROTHROMBIN TIME 9.9 SEC (9.0-12.0); PTT,PARTIAL THROMBOPLSTIN TIME 24.8 SEC (22.0-34.0)
[2024-03-15 14:33] LABS: ALANINE AMINOTRANSFERASE,ALT 20 U/L (16-63); ALBUMIN 3.9 g/dL (3.4-5.0); ALKALINE PHOSPHATASE 82 U/L (46-116); ASPARTATE AMNIOTRANSFERASE,AST 17 U/L (15-37); BILIRUBIN TOTAL 0.5 mg/dL (0.2-1.0); BLOOD UREA NITROGEN,BUN 22 mg/dL (7-18); BUN/CREATININE RATIO 21.6 (No establ ref range); CALCIUM 8.8 mg/dL (8.5-10.1); CARBON DIOXIDE,CO2 28 mmol/L (21-32); CHLORIDE,CL 103 mmol/L (98-107); CREATININE 1.02 mg/dL (0.70-1.30); EST CRCL DRUG DOSING (CG) 127.59 mL/min; GLUCOSE RANDOM 103 mg/dL (70-99); LIPASE 27 U/L (16-77); PROTEIN TOTAL,TP 7.8 g/dL (6.4-8.2); SODIUM,NA 137 mmol/L (136-145)
[2024-03-15 14:34] LABS: ESTIMATED GFR 95 mL/min (>=60); ETHANOL BLOOD MEDICAL < 3 mg/dL (0)
[2024-03-15] MEDS: Take Home: hydrOXYzine HCl 25 MG Tab, 4 Tab Pack PO ONE (14:51)
== END 2024-03-15 14:57 | disposition home or self-care (01) ==
LOC: DL.ED 13:50
DX: R07.9 Chest pain, unspecified (principal); F41.9 Anxiety disorder, unspecified; E11.9 Type 2 diabetes mellitus without complications; Z91.011 Allergy to milk products; Z87.891 Personal history of nicotine dependence
CPT/HCPCS: 36415; 71045; 80053; 80305; 80307; 81003; 83690; 84484; 85025; 85610; 85730; 99285; A9270; J3490

== ENCOUNTER 2025-01-24 23:36 | Emergency (ER) | payer MEDICAID ==
[2025-01-24 23:54] VITALS: BP 145/93; PULSE 90
[2025-01-24] MEDS: Albuterol/Ipratropium 3.0-0.5 MG/3 ML Neb Soln NEB ONE (23:59)
[2025-01-24] MEDS: Dexamethasone 6 MG TABLET PO ONE (23:59)
[2025-01-25] MEDS: Albuterol 6.7 GM Inhaler INH ONE (00:49)
[2025-01-25] MEDS: Azithromycin 250 MG Tab PO ONE (00:49)
== END 2025-01-25 00:57 | disposition home or self-care (01) ==
LOC: DL.ED 23:36
DX: J40 Bronchitis, not specified as acute or chronic (principal); E11.9 Type 2 diabetes mellitus without complications; Z91.011 Allergy to milk products
CPT/HCPCS: 71045; 87081; 87430; 99284; A9270; J7620; J8540; 99283

== ENCOUNTER 2025-04-04 19:58 | Emergency (ER) | payer MEDICAID ==
[2025-04-04] MEDS: LORazepam 2 MG/ML SDV ONE (20:10)
[2025-04-04] MEDS: Etomidate 2 MG/ML 20 ML SDV IVPUSH ONE (20:15)
[2025-04-04] MEDS: Succinylcholine 200 MG/10 ML MDV IVPUSH ONE (20:15)
[2025-04-04] MEDS: Ketamine 500 mg/10 ML MDV IV ONE (20:21)
[2025-04-04 20:34] LABS: BASOPHILS PERCENT AUTO 0.2 % (0.0-1.0); EOSINOPHILS PERCENT AUTO 6.2 % (1.0-3.0); LYMPHOCYTES PERCENT AUTO 35.3 % (20.5-50.1); MONOCYTES PERCENT AUTO 5.0 % (2-8); NEUTROPHILS PERCENT AUTO 53.3 % (42.2-75.2); PLATELET COUNT,PLT 233 10^3/uL (150-450); RED BLOOD CELL COUNT 4.78 10^6/uL (4.6-6.2); WHITE BLOOD CELL COUNT,WBC 8.2 10^3/uL (5.0-10.0)
[2025-04-04 20:36] LABS: APPEARANCE,URINE CLEAR (CLEAR); GLUCOSE,URINE NEGATIVE (NEGATIVE); OCCULT BLOOD,URINE NEGATIVE (NEGATIVE)
[2025-04-04 20:41] LABS: AMPHETAMINES,URINE NEGATIVE (NEGATIVE); BARBITURATES,URINE NEGATIVE (NEGATIVE); MDMA (ECSTASY), URINE NEGATIVE (NEGATIVE); METHAMPHETAMINES,URINE NEGATIVE (NEGATIVE); OPIATES,URINE NEGATIVE (NEGATIVE); OXYCODONE,URINE NEGATIVE (NEGATIVE); PHENCYCLIDINE,URINE NEGATIVE (NEGATIVE); TCA,URINE NEGATIVE (NEGATIVE)
[2025-04-04 20:50] LABS: INR 0.9 (0.9-1.2); PTT,PARTIAL THROMBOPLSTIN TIME 24.5 SEC (22.0-34.0)
[2025-04-04 20:53] LABS: A/G RATIO 0.9; ALANINE AMINOTRANSFERASE,ALT 34 U/L (16-63); ASPARTATE AMNIOTRANSFERASE,AST 22 U/L (15-37); BILIRUBIN TOTAL 0.2 mg/dL (0.2-1.0); BLOOD UREA NITROGEN,BUN 10 mg/dL (7-18); CARBON DIOXIDE,CO2 24 mmol/L (21-32); CHLORIDE,CL 109 mmol/L (98-107); CREATINE KINASE,CK 245 U/L (39-308); CREATININE 0.85 mg/dL (0.70-1.30); ETHANOL BLOOD MEDICAL 280 mg/dL (0); GLUCOSE RANDOM 168 mg/dL (70-99); POTASSIUM,K 3.6 mmol/L (3.5-5.1); PROTEIN TOTAL,TP 7.8 g/dL (6.4-8.2); SODIUM,NA 145 mmol/L (136-145)
[2025-04-04 20:54] LABS: LACTIC ACID 1.5 mmol/L (0.4-2.0)
[2025-04-04 20:56] LABS: ESTIMATED GFR 112 mL/min (>=60)
[2025-04-04] MEDS: Iopamidol 755 Mg/ML 100 ML Bottle IVPUSH ONE (21:16)
[2025-04-04] MEDS: Rocuronium 100 MG/10 ML MDV IVPUSH ONE (21:25)
[2025-04-04] MEDS: Diphtheria,Pertussis(Acell),Tetanus Vaccine 0.5 ML Syringe IM ONE (22:30)
== END 2025-04-04 22:15 ==
LOC: DL.ED 20:48
DX: S02.2XXA Fracture of nasal bones, initial encounter for closed fracture (principal); S02.401A Maxillary fracture, unspecified side, initial encounter for closed fracture; F10.129 Alcohol abuse with intoxication, unspecified; R41.82 Altered mental status, unspecified; J98.4 Other disorders of lung; Z23 Encounter for immunization; Z91.011 Allergy to milk products; Y04.8XXA Assault by other bodily force, initial encounter; Y90.8 Blood alcohol level of 240 mg/100 ml or more
CPT/HCPCS: 31500; 36415; 51702; 70450; 70486; 71045; 71260; 72125; 74177; 80053; 80305; 80307; 81003; 82550; 83605; 83690; 83735; 84484; 85025; 85610; 85730; 90471; 93005; 93010; 96365; 96366; 96375; 99285; 99291; G0390; J2060; J2250; J3490; J7030; Q9967

== ENCOUNTER 2025-04-12 17:51 | Emergency (ER) | payer SELFPAY ==
[2025-04-12 18:04] VITALS: BP 134/71; PULSE 85
[2025-04-12] MEDS: Ketorolac 30 MG/ML SDV IM ONE (18:43)
== END 2025-04-12 18:48 | disposition home or self-care (01) ==
LOC: DL.ED 17:51
DX: J01.00 Acute maxillary sinusitis, unspecified (principal); Z91.011 Allergy to milk products
CPT/HCPCS: 96372; 99283; A9270; J1885

== ENCOUNTER 2025-04-16 21:09 | Emergency (ER) | payer SELFPAY ==
[2025-04-16 22:00] VITALS: BP 135/84; PULSE 88
[2025-04-16 22:27] LABS: BASOPHILS PERCENT AUTO 0.3 % (0.0-1.0); EOSINOPHILS PERCENT AUTO 4.1 % (1.0-3.0); LYMPHOCYTES PERCENT AUTO 38.7 % (20.5-50.1); MONOCYTES PERCENT AUTO 7.7 % (2-8); NEUTROPHILS PERCENT AUTO 49.2 % (42.2-75.2); PLATELET COUNT,PLT 259 10^3/uL (150-450); RED BLOOD CELL COUNT 4.56 10^6/uL (4.6-6.2); WHITE BLOOD CELL COUNT,WBC 6.5 10^3/uL (5.0-10.0)
[2025-04-16 22:48] LABS: A/G RATIO 0.9; BILIRUBIN TOTAL 0.2 mg/dL (0.2-1.0); BLOOD UREA NITROGEN,BUN 18.0 mg/dL (7-18); CARBON DIOXIDE,CO2 25.0 mmol/L (21-32); CHLORIDE,CL 102.0 mmol/L (98-107); CREATININE 0.88 mg/dL (0.70-1.30); EST CRCL DRUG DOSING (CG) 146.41 mL/min; ETHANOL BLOOD MEDICAL 271.0 mg/dL (0); PROTEIN TOTAL,TP 7.9 g/dL (6.4-8.2); SODIUM,NA 142.0 mmol/L (136-145)
[2025-04-16 22:53] LABS: ESTIMATED GFR 111.0 mL/min (>=60); POTASSIUM,K 3.4 mmol/L (3.5-5.1)
[2025-04-16 23:48] LABS: ALANINE AMINOTRANSFERASE,ALT 25.0 U/L (16-63); ASPARTATE AMNIOTRANSFERASE,AST 14.0 U/L (15-37)
[2025-04-16 23:56] LABS: GLUCOSE RANDOM 267.0 mg/dL (70-99)
== END 2025-04-17 00:45 | disposition home or self-care (01) ==
LOC: DL.ED 21:09
DX: S06.0XAA Concussion with loss of consciousness status unknown, initial encounter (principal); F10.129 Alcohol abuse with intoxication, unspecified; E11.9 Type 2 diabetes mellitus without complications; Z90.11 Acquired absence of right breast and nipple; F17.200 Nicotine dependence, unspecified, uncomplicated; W21.03XA Struck by baseball, initial encounter
CPT/HCPCS: 36415; 70450; 71045; 80053; 80307; 83690; 83735; 85025; 96360; 99284; J7030